=== PATIENT | female | born 1955 | race Caucasian/White ===

== ENCOUNTER 2018-10-19 19:48 | Emergency (ER) | payer BC ==
--- OUTSIDE RECORDS SUMMARY | 2018-10-19 20:04 | XMS REPORT | Clinical Summary ---
:1955 Author Organization [facility] Address [address] [place] [address] Care Team Providers Name Role Phone Darvin Martin MD Primary Care Provider Allergies Active Allergy Reactions Severity Noted Date Comments Penicillins Hives, Swelling High 1956 [place] Swelling High 04/19/2018 Medications Medication Sig Dispensed Refills Start End Date Status Date telmisartan-hydrochl Take 1 tablet 0 Active orothiazid (MICARDIS by mouth HCT) 40-12.5 mg per daily. tablet escitalopram Take 10 mg by 0 Active (LEXAPRO) 10 MG mouth daily. tablet pregabalin (LYRICA) Take 75 mg by 0 Active 75 MG capsule mouth daily. trospium chloride Take 60 mg by 0 Active (TROSPIUM ORAL) mouth daily. OMEPRAZOLE ORAL Take 40 mg by 0 Active mouth daily. cyclobenzaprine Take 1/2 to 1 40 tablet 0 Active (FLEXERIL) 10 mg tab orally 3 9 tablet times daily as needed ibuprofen Take 800 mg by 0 08/02/19 Discontinued (ADVIL,MOTRIN) 800 mouth daily. 19 (Stop Taking at MG tablet Discharge) UNABLE TO FIND Take by mouth 0 05/02/19 Discontinued daily. 19 (Med List Medication for Cleanup) bladder control ( name unknown) acetaminophen-codein Take 1-2 40 tablet 0 08/12/19 e (TYLENOL WITH tablets by 9 19 CODEINE #3) 300-30 mouth 4 (four) mg per tablet times a day as needed for moderate pain for up to 10 days. Active Problems Problem Noted Date Follow-up examination following surgery 09/02/2018 Fixation hardware in spine 09/02/2018 Cervical spondylosis with myelopathy and radiculopathy 07/31/2018 Cervicalgia 05/23/2018 Resolved Problems Problem Noted Date Resolved Date HNP (herniated nucleus pulposus) with myelopathy, cervical 05/23/20182018 Encounters Date Type Specialty Care Team Description 09/02/2018 Office Visit Corey Francois (Primary Dx); MD Kt Follow-up examination following surgery; Fixation hardware in spine 09/02/2018 Hospital Encounter Radiology Corey Draper Cervical vertebral MD Kt fusion 09/02/2018 Orders Only Neurosurgery Corey Draper Cervical MD Kt radiculopathy (Primary Dx) 08/02/2018 Orders Only Neurosurgery Jessenia Cavanaugh, Cervical vertebral STREET ENGINEER fusion (Primary Dx) 07/31/2018 Surgery General Surgery Corey Draper ANTERIOR CERVICAL MD Kt DISCECTOMY WITH FUSION C3-C4 07/31/2018 Anesthesia Event General Surgery Tenzin Wei MD [place], [place], [place] 07/31/2018 - Hospital Encounter Corey Francois Cervical spondylosis 08/01/2018 MD Kt with myelopathy 07/04/2018 Pre-Admit Testing Pre-Admission Corey Draper Preop testing Appointment Testing MD Kt (Primary Dx) 07/04/2018 Office Visit Neurosurgery Corey Draper HNP (herniated nucleus pulposus) with myelopathy, cervical (Primary Dx); MD Kim Meraz 07/04/2018 Hospital Encounter Radiology Corey Draper HNP (herniated nucleus pulposus) with myelopathy, cervical; MD Kim Meraz 06/26/2018 Orders Only Neurosurgery Corey Draper HNP (herniated nucleus pulposus) with myelopathy, cervical (Primary Dx); MD Kim Meraz 06/14/2018 Telephone Neurosurgery Corey Draper MD 05/23/2018 Hospital Encounter Radiology Corey Draper MD 05/23/2018 Office Visit Corey Francois HNP (herniated nucleus pulposus) with myelopathy, cervical (Primary Dx); MD Kt Cervicaloliver 05/23/2018 Hospital Encounter Radiology Corey Draper MD radiculopathy 05/23/2018 Hospital Encounter Radiology Corey Draper Cervical MD Kt radiculopathy 05/23/2018 Orders Only Neurosurgery Corey Draper MD radiculopathy (Primary Dx) 05/22/2018 Abstract Neurosurgery Jessenia Cavanaugh, STREET ENGINEER 05/16/2018 Telephone Radiology Malka Tomas RN 05/13/2018 Hospital Encounter Radiology [place], Breast mass Zach Pearson MD 05/13/2018 Hospital Encounter Radiology [place], Breast mass Zach Pearson MD 05/13/2018 Hospital Encounter Radiology [place], Breast mass Zach Pearson MD 05/13/2018 Hospital Encounter Radiology [place], Breast mass Zach Pearson MD 05/13/2018 Telephone Radiology Malka Tomas RN 05/01/2018 Transcribe Orders Radiology [place], Breast mass (Primary Zach Pearson MD Dx) 05/01/2018 Telephone Radiology Malka Tomas RN 04/19/2018 Hospital Encounter Radiology Zach Smith MD 04/19/2018 Hospital Encounter Radiology Zach Smith MD 04/19/2018 Hospital Encounter Radiology Zach Smith MD 04/19/2018 Hospital Encounter Radiology [place], Breast pain Zach Pearson MD 04/01/2018 Transcribe Orders Access [place], Breast pain (Primary Zach Pearson MD Dx) after 10/18/2017 Social History Tobacco Use Types Packs/Day Years Used Date Never Smoker Smokeless Tobacco: Never Used Alcohol Use Drinks/Week oz/Week Comments No rare Alcohol Habits Answer Date Recorded How often do you have a drink containing alcohol? Never 05/22/2018 How many drinks containing alcohol do you have on a typical Not asked day when you are drinking? How often do you have six or more drinks on one occasion? Not asked Sex Assigned at Date Recorded Not on file Job Start Date Occupation Industry Not on file Not on file Not on file Travel History Travel Start Travel End No recent travel history available. Last Filed Vital Signs Vital Sign Reading Time Taken Comments Blood Pressure 109/59 08/01/2018 8:18 AM CDT Pulse 61 08/01/2018 8:18 AM CDT Temperature 36.6 C (97.9 F) 08/01/2018 8:18 AM CDT Respiratory Rate 16 08/01/2018 8:18 AM CDT Oxygen Saturation 98% 08/01/2018 8:18 AM CDT Inhaled Oxygen Concentration - - Weight 88.4 kg (194 lb 14.4 oz) 07/31/2018 5:36 AM CDT Height 154.9 cm (5' 1") 07/31/2018 5:36 AM CDT Body Mass Index 36.83 07/31/2018 5:36 AM CDT Plan of Treatment Date Type Specialty Care Team Description 11/04/2018 Office Visit Neurosurgery Corey Draper MD [address] [facility] [facility] [address] [place] [address] Health Maintenance Due Date Last Done Comments CERVICAL CANCER SCREENING 1977 COLONOSCOPY SCREENING 2006 SHINGLES VACCINES (#1) 2006 INFLUENZA VACCINE 09/05/2018 BREAST CANCER SCREENING 05/13/2020 05/13/2018 Implants Implanted Type Area Advertising Job Titles Device Shelf Model / Identifier Expiration Serial / Date Lot Justyna Merlos Mastergraft Cer 0.75cc - [id number] Human Tissue N/A: MEDTRONIC 04/04/2022 [id number] / Implanted: Qty: 1 on 07/31/2018 by Corey Draper MD at [facility] Implants N/A SPINAL AND / BIOLOGICS [id number] Stand-Alone Interbody Cage [id number] - [id number] IMPLANT N/A: MEDTRONIC 05/06/2026 [id number] / Implanted: 07/31/2018 at [facility] (Quantity not on file) DEVICES N/A SOFAMOR DANEK / [id number] 3.5x15mm Self-Drill Screw (2 Pack) - [id number] IMPLANT N/A: [employer] 05/22/2026 [id number] / Implanted: 07/31/2018 at [facility] (Quantity not on file) DEVICES N/A SOFAMOR DANEK / [id number] Pin Distrctn Lithia 12mm Strl - [id number] Neurosurgical N/A: AESCULAP SPINE 02/26/2023 [id number] / Implanted: 07/31/2018 at [facility] (Quantity not on file) Implants N/A / [id number] Procedures Procedure Name Priority Date/Time Associated Comments Diagnosis XR CERVICAL SPINE 2 Routine 09/02/2018 8:43 AM Cervical vertebral Results for this OR 3 VW CDT fusion procedure are in the results section. SURGICAL PATHOLOGY Routine 07/31/2018 11:53 AM Results for this REQUEST CDT procedure are in the results section. XR CERVICAL SPINE 1 Routine 07/31/2018 9:30 AM Results for this VW CDT procedure are in the results section. ANESTHESIA Routine 07/31/2018 9:17 AM INTUBATION CDT Procedure Note - Julee Garcia CRNA - 07/31/2018 9:17 AM CDT Airway Date/Time: 07/31/2018 8:12 AM Performed by: Julee Garcia CRNA Authorized by: Tenzin Wei MD Location: OR Resident/JOSE ANTONIO/AA: Julee Garcia CRNA Performed by: resident/FLIGHT SERVICE SPECIALIST/AA Preoxygenated with 100% O2: Yes C-spine Precautions Maintained Throughout: Yes Mask Ventilation: Assisted mask (OPA ) Final Airway Type: Endotracheal airway Final Endotracheal Airway: ETT Cuffed: Yes Technique Used: Video laryngoscopy Insertion Site: Oral Blade type: Allport scope. Laryngoscope Blade/Videolaryngoscope Blade Size: 3 ETT Size (mm): 7.0 Cuff at minimum occlusion pressure: Yes Measured from: Lips ETT to Lips (cm): 22 Placement Verified by: CO2 detection Laryngoscopic view: Grade I - full view of glottis Number of Attempts at Approach: 1 Preoxygenation >3 min Eyes taped at LOC Easy, gentle mask ventilation Easy, atraumatic intubation using Allport scope Dentition unchanged and intact XR CERVICAL SPINE Routine 07/31/2018 9:09 AM Results for this 1 VW CDT procedure are in the results section. XR CERVICAL SPINE Routine 07/31/2018 9:09 AM Results for this 1 VW CDT procedure are in the results section. DISCECTOMY, 07/31/2018 7:58 AM Cervical spondylosis CERVICAL, WITH CDT with myelopathy FUSION, ANTERIOR APPROACH Case Notes SUPINE POSITION, MICROSCOPE, [employer] STAND ALONE CAGE Special Needs SUPINE POSITION, MICROSCOPE, [employer] STAND ALONE CAGE ESTIMATED GFR Routine 07/04/2018 12:12 PM Results for this CDT procedure are in the results section. BASIC METABOLIC Routine 07/04/2018 12:12 PM Preop testing Results for this PANEL CDT procedure are in the results section. HC COMPLETE BLD Routine 07/04/2018 12:12 PM Preop testing Results for this COUNT W/AUTO DIFF CDT procedure are in the results section. MRI CERVICAL SPINE Routine 07/04/2018 9:57 AM HNP (herniated nucleus Results for this WO CONTRAST CDT pulposus) with procedure are in myelopathy, cervical the results Cervicalgia section. XR SPINE SCOLIOSIS Routine 05/23/2018 10:02 AM Cervical radiculopathy Results for this 2-3 VIEWS CDT procedure are in the results section. XR CERVICAL SPINE Routine 05/23/2018 10:00 AM Cervical radiculopathy Results for this COMPLETE W FLEX EXT CDT procedure are in the results section. SURGICAL PATHOLOGY Routine 05/13/2018 1:12 PM Results for this REQUEST CDT procedure are in the results section. SURGICAL PATHOLOGY Routine 05/13/2018 1:12 PM Results for this REQUEST CDT procedure are in the results section. MAMMO DIAGNOSTIC W Routine 05/13/2018 9:48 AM Breast mass Results for this CAD LEFT CDT procedure are in the results section. US BREAST BIOPSY Routine 05/13/2018 9:25 AM Breast mass Results for this EACH ADDITIONAL CDT procedure are in LEFT the results section. US BREAST BIOPSY Routine 05/13/2018 9:25 AM Breast mass Results for this LEFT CDT procedure are in the results section. US BREAST LEFT Routine 05/13/2018 9:23 AM Breast mass Results for this LIMITED CDT procedure are in the results section. MRI BREAST W WO Routine 04/19/2018 2:30 PM Breast pain Results for this CONTRAST BILATERAL CDT procedure are in the results section. POC CREATININE Routine 04/19/2018 1:52 PM Results for this CDT procedure are in the results section. ESTIMATED GFR Routine 04/19/2018 1:52 PM Results for this CDT procedure are in the results section. MRI SPINE EXTERNAL Routine 03/21/2018 12:17 PM Results for this STUDY COMPLIANCE INVESTIGATOR procedure are in the results section. MAMMO EXTERNAL Routine 03/04/2018 1:17 PM Results for this STUDY COMPLIANCE INVESTIGATOR procedure are in the results section. US BREAST EXTERNAL Routine 03/04/2018 1:12 PM Results for this STUDY COMPLIANCE INVESTIGATOR procedure are in the results section. after 10/18/2017 Results XR Cervical Spine 2 Or 3 Vw (09/02/2018 8:43 AM CDT) Specimen Narrative Performed At EXAMINATION: XR CERVICAL SPINE 2 OR 3 VW [facility] CLINICAL HISTORY: M43.22 Fusion of spinecervical region, C-spine fusionfollow up COMPARISON:None IMPRESSION: 3 views of the cervical spine are interpreted. ACDF is noted at C3-4 with endplate screws. No loosening is seen. Moderate disc degenerative changes are noted at C6-7 and to a lesser extent at C4-5 and C5-6. Mild disc degenerative changes are noted at C2-3. Alignment is preserved. [facility]-[id number] Procedure Note Interface, Radiology Results Incoming - 09/02/2018 8:48 AM CDT EXAMINATION: XR CERVICAL SPINE 2 OR 3 VW CLINICAL HISTORY: M43.22 Fusion of spine cervical region, C-spine fusion follow up COMPARISON: None IMPRESSION: 3 views of the cervical spine are interpreted. ACDF is noted at C3-4 with endplate screws. No loosening is seen. Moderate disc degenerative changes are noted at C6-7 and to a lesser extent at C4-5 and C5-6. Mild disc degenerative changes are noted at C2-3. Alignment is preserved. [facility]-[id number] Performing Organization Address City/[facility]/Zipcode Phone Number [facility] [address] [place] [address] Surgical pathology request (07/31/2018 11:53 AM CDT)Only the most recent of3 resultswithin the time period is included. [facility] DEPARTMENT OF PATHOLOGY AND GENOMIC MEDICINE Surgical pathology See link below [facility] DEPARTMENT OF report for PDF Lab PATHOLOGY AND Report GENOMIC MEDICINE Result status This is Final [facility] DEPARTMENT OF Report for PATHOLOGY AND [id number] GENOMIC MEDICINE Specimen Performing Organization Address City/[facility] Phone Number [facility] DEPARTMENT OF PATHOLOGY AND [address] [place] [address] GENOMIC MEDICINE XR Cervical Spine 1 Vw (07/31/2018 9:30 AM CDT)Only the most recent of3 resultswithin the time period is included. Specimen Narrative Performed At EXAMINATION: XR CERVICAL SPINE 1 VW [facility] CLINICAL HISTORY: Cervical region neck pain and radiculopathy COMPARISON:Intraoperative x-ray from earlier today FINDINGS: There is anterior fusion from C3-C4. There is good alignment. There are degenerative changes in the cervical spine. There is a tube within the oropharynx extending downwards. There are multiple radiographic wires and leads. IMPRESSION: Lateral portable crosstable intraoperative radiograph of the cervical spine for localization during cervical spine surgery. [facility]-[id number] Procedure Note Interface, Radiology Results Incoming - 07/31/2018 10:44 AM CDT EXAMINATION: XR CERVICAL SPINE 1 VW CLINICAL HISTORY: Cervical region neck pain and radiculopathy COMPARISON: Intraoperative x-ray from earlier today FINDINGS: There is anterior fusion from C3-C4. There is good alignment. There are degenerative changes in the cervical spine. There is a tube within the oropharynx extending downwards. There are multiple radiographic wires and leads. IMPRESSION: Lateral portable crosstable intraoperative radiograph of the cervical spine for localization during cervical spine surgery. [facility]-[id number] Performing Organization Address City/[facility] Cent[facility]ode Phone Number [facility] [address] [place] [address] Estimated GFR (07/04/2018 12:12 PM CDT)Only the most recent of2 resultswithin the time period is included. Estimated GFR 60 mL/min/1.73 [facility] Comment: [address] CatergoryUnitsInterpretation G1 >=90 Normal or high G2 60-89Mildly decreased [id number] to moderately decreased H3i90-91Uietwkcmtg to severely decreased G4 15-29Severely decreased G5 <15Kidney failure The eGFR was calculated using the Chronic Kidney Disease Epidemiology Collaboration (CKD-EPI) equation. Interpretation is based on recommendations of the National Kidney Foundation-Kidney Disease Outcomes Quality Initiative (NKF-KDOQI) published in 2014. Specimen Plasma specimen Performing Organization Address [facility] Centercode Phone Number [facility] DEPARTMENT OF PATHOLOGY AND [address] [place] [address] GENOMIC MEDICINE [address] [address] CBC with platelet and differential (07/04/2018 12:12 PM CDT) WBC 6.74 4.50 - 11.00 [facility] RBC 4.56 4.20 - 5.50 [facility] HGB 14.4 12.0 - 16.0 [facility] g/dL [facility] HCT 43.3 37.0 - 47.0 % [facility] MCV 95.0 82.0 - 100.0 [facility] MCH 31.6 27.0 - 34.0 pg [facility] MCHC 33.3 31.0 - 37.0 [facility] g/dL [facility] RDW - SD 44.9 37.0 - 55.0 fL [facility] MPV 11.0 8.8 - 13.2 fL [facility] Platelet count 244 150 - 400 k/uL [facility] Nucleated RBC 0.00 /100 WBC [facility] Neutrophils 60.5 39.0 - 69.0 % [facility] Lymphocytes 27.4 25.0 - 45.0 % [facility] Monocytes 8.8 0.0 - 10.0 % [facility] Eosinophils 2.2 0.0 - 5.0 % [facility] Basophils 0.7 0.0 - 1.0 % [facility] Immature granulocytes 0.4Comment: 0.0 - 1.0 % [facility] granulocytes" (promyelocytes , myelocytes, metamyelocytes ) Specimen Blood Performing Organization Address City/[facility]ode Phone Number [facility] DEPARTMENT OF PATHOLOGY AND [address] [place] [phone] Basic metabolic panel (07/04/2018 12:12 PM CDT) Sodium 143 135 - 148 mEq/L [facility] Potassium 3.8 3.5 - 5.0 mEq/L [facility] Chloride 100 98 - 112 mEq/L [facility] CO2 28 24 - 31 mEq/L [facility] Anion gap 15@ANIO 7 - 15 mEq/L [facility] BUN 13 8 - 23 mg/dL [facility] Creatinine 1.01 (H) 0.50 - 0.90 mg/dL [facility] Glucose 112 (H) 65 - 99 mg/dL [facility] Calcium 9.5 8.8 - 10.2 mg/dL [facility] Specimen Plasma specimen Performing Organization Address City/[facility]ercode Phone Number [facility] DEPARTMENT OF PATHOLOGY AND [address] [place] [address] MRI Cervical Spine Wo Contrast (07/04/2018 9:57 AM CDT) Specimen Narrative Performed At EXAMINATION: MRI CERVICAL SPINE WO CONTRAST [facility] CLINICAL HISTORY: M50.00 Cervical disc disorder with myelopathyunspecified cervical region, M54.2 Cervicalgia, HNP (herniated nucleus pulposus) with myelopathycervical COMPARISON:MRI C-spine 03/21/2018. TECHNIQUE: Multiplanar multisequence noncontrast enhanced examination was performed of the cervical spine. FINDINGS: No significant interval change appearing since the prior MRI from 2018.The alignment of cervical spine is within normal limits.No subluxation. STIR hyperintense vertebral hemangiomas are noted with in the T1 and T2 vertebral bodies. No suspicious osseous lesion. Vertebral body heights are preserved. The cervicomedullary junction is normal in appearance. No spinal cord signal abnormality. No prevertebral edema identified. Right thyroid nodule measuring up to 1.9 x 1.4 cm noted within the right tracheoesophageal groove, image 28 of series 6. No cervical lymphadenopathy identified. Axial images through the disc spaces demonstrate the following: C1-C2: No significant spinal canal stenosis. C2-C3: No significant posterior disc disease, spinal canal, subarticular zone, or neural foraminal stenosis. C3-C4: Disc desiccation with mild broad-based disc protrusion which indents the ventral thecal sac and results in mild to moderate central canal stenosis, including contact of the ventral spinal cord, image 14 of series 5. Neural foramina are patent bilaterally. C4-C5: Mild to moderate left neural foraminal stenosis secondary to degenerative uncovertebral hypertrophy, image 17 of series 5. No significant posterior disc disease, spinal canal, subarticular zone, or right neural foraminal stenosis. C5-C6: Disc desiccation with moderate intervertebral disc height loss and circumferential disc bulge which indents the ventral thecal sac and results in moderate bilateral neural frontal stenosis when combined with facet arthrosis. Central canal is mildly narrowed. C6-C7: Moderate to marked left neural foraminal stenosis secondary to degenerative uncovertebral and facet arthrosis. No significant posterior disc disease, spinal canal, subarticular zone, or right neural foraminal stenosis. C7-T1: No significant posterior disc disease, spinal canal, subarticular zone, or neural foraminal stenosis. IMPRESSION: 1.Mild to moderate central canal stenosis at C3-C4 secondary to broad- based disc protrusion, including contact of the ventral spinal cord. No abnormal cord signal. 2.Right tracheal esophageal groove thyroid nodule measuring up to 1.9 cm, which merits dedicated thyroid ultrasound and FNA/biopsy based on size criteria. [facility]-[id number] Procedure Note Hm Interface, Radiology Results Incoming - 07/04/2018 10:27 AM CDT EXAMINATION: MRI CERVICAL SPINE WO CONTRAST CLINICAL HISTORY: M50.00 Cervical disc disorder with myelopathy unspecified cervical region, M54.2 Cervicalgia, HNP (herniated nucleus pulposus) with myelopathy cervical COMPARISON: MRI C-spine 03/21/2018. TECHNIQUE: Multiplanar multisequence noncontrast enhanced examination was performed of the cervical spine. FINDINGS: No significant interval change appearing since the prior MRI from 2018.The alignment of cervical spine is within normal limits.No subluxation. STIR hyperintense vertebral hemangiomas are noted within the T1 and T2 vertebral bodies. No suspicious osseous lesion. Vertebral body heights are preserved. The cervicomedullary junction is normal in appearance. No spinal cord signal abnormality. No prevertebral edema identified. Right thyroid nodule measuring up to 1.9 x 1.4 cm noted within the right tracheoesophageal groove, image 28 of series 6. No cervical lymphadenopathy identified. Axial images through the disc spaces demonstrate the following: C1-C2: No significant spinal canal stenosis. C2-C3: No significant posterior disc disease, spinal canal, subarticular zone, or neural foraminal stenosis. C3-C4: Disc desiccation with mild broad-based disc protrusion which indents the ventral thecal sac and results in mild to moderate central canal stenosis, including contact of the ventral spinal cord, image 14 of series 5. Neural foramina are patent bilaterally. C4-C5: Mild to moderate left neural foraminal stenosis secondary to degenerative uncovertebral hypertrophy, image 17 of series 5. No significant posterior disc disease, spinal canal, subarticular zone, or right neural foraminal stenosis. C5-C6: Disc desiccation with moderate intervertebral disc height loss and circumferential disc bulge which indents the ventral thecal sac and results in moderate bilateral neural frontal stenosis when combined with facet arthrosis. Central canal is mildly narrowed. C6-C7: Moderate to marked left neural foraminal stenosis secondary to degenerative uncovertebral and facet arthrosis. No significant posterior disc disease, spinal canal, subarticular zone, or right neural foraminal stenosis. C7-T1: No significant posterior disc disease, spinal canal, subarticular zone, or neural foraminal stenosis. IMPRESSION: 1. Mild to moderate central canal stenosis at C3-C4 secondary to broad-based disc protrusion, including contact of the ventral spinal cord. No abnormal cord signal. 2. Right tracheal esophageal groove thyroid nodule measuring up to 1.9 cm, which merits dedicated thyroid ultrasound and FNA/biopsy based on size criteria. [facility]-[id number] Performing Organization Address City/State/Zipcode Phone Number [facility] [address] [place] [address] XR Spine Scoliosos 2-3 Views (05/23/2018 10:02 AM CDT) Specimen Narrative Performed At EXAMINATION: XR SPINE SCOLIOSIS 2-3 VIEWS [facility] CLINICAL HISTORY: M54.12 Radiculopathycervical region, radiculopathy COMPARISON:None IMPRESSION: 12 rib-bearing thoracic vertebrae and 5 lumbar type vertebrae. Mild right convex scoliosis with Vazquez angle measuring 14 degrees from the superior endplate of T6 to the inferior endplate of T12. Mild left convex lumbar scoliosis with Vazquez angle measuring 17 degrees from the spine but of T12 to the inferior endplate of L3. Mild left lateral subluxation of L3 on L4. A coronal reji line drawn inferiorly from the mid C7 vertebral body terminates approximately 2.3 cm to the left of the mid S1 level. A sagittal reji line drawn inferiorly from the mid C7 vertebral body terminates approximately 1.5 cm anterior to the posterior aspect of the superior endplate of S1. [id number] Procedure Note Interface, Radiology Results Incoming - 05/23/2018 1:28 PM CDT EXAMINATION: XR SPINE SCOLIOSIS 2-3 VIEWS CLINICAL HISTORY: M54.12 Radiculopathy cervical region, radiculopathy COMPARISON: None IMPRESSION: 12 rib-bearing thoracic vertebrae and 5 lumbar type vertebrae. Mild right convex scoliosis with Vazquez angle measuring 14 degrees from the superior endplate of T6 to the inferior endplate of T12. Mild left convex lumbar scoliosis with Vazquez angle measuring 17 degrees from the spine but of T12 to the inferior endplate of L3. Mild left lateral subluxation of L3 on L4. A coronal reji line drawn inferiorly from the mid C7 vertebral body terminates approximately 2.3 cm to the left of the mid S1 level. A sagittal reji line drawn inferiorly from the mid C7 vertebral body terminates approximately 1.5 cm anterior to the posterior aspect of the superior endplate of S1. [id number] Performing Organization Address City/[facility] Phone Number [facility] [address] [place] [address] XR Cervical Spine Complete w flex/ext (05/23/2018 10:00 AM CDT) Specimen Narrative Performed At EXAMINATION:XR CERVICAL SPINE COMPLETE W FLEX EXT [facility] COMPARISON:None CLINICAL HISTORY:M54.12 Radiculopathycervical region, radiculopathy COMMENTS:Frontal and lateral and 2 oblique views and flexion-extension views of the cervical spine are provided. FINDINGS:There is mild spondylosis including posteriorly in the mid and lower cervical spine. There is mild disc height narrowing and endplate sclerosis at C6-7 and to a lesser degree at the adjacent levels. Between flexion and extension there is no significant abnormal motion. The oblique views show encroachment upon the C6-7 foramen bilaterally. IMPRESSION:Degenerative change in the cervical spine. [id number] Procedure Note Hm Interface, Radiology Results Incoming - 05/23/2018 10:33 AM CDT EXAMINATION: XR CERVICAL SPINE COMPLETE W FLEX EXT COMPARISON: None CLINICAL HISTORY: M54.12 Radiculopathy cervical region, radiculopathy COMMENTS: Frontal and lateral and 2 oblique views and flexion-extension views of the cervical spine are provided. FINDINGS: There is mild spondylosis including posteriorly in the mid and lower cervical spine. There is mild disc height narrowing and endplate sclerosis at C6-7 and to a lesser degree at the adjacent levels. Between flexion and extension there is no significant abnormal motion. The oblique views show encroachment upon the C6-7 foramen bilaterally. IMPRESSION: Degenerative change in the cervical spine. [id number] Performing Organization Address [facility] Phone Number [facility] [address] [place] [address] Mammo Diagnostic w Cad Left (05/13/2018 9:48 AM CDT) Specimen Addenda Addendum by Sofia Medina MD on 05/15/2018 8:40 AM ADDENDUM #1 The specimen from the left breast ultrasound guided biopsy of mass 1 yielded dilated ducts lined by foamy histiocytes and filled with granular material and stromal fibrosis. Site 2 yielded mildly dilated duct with columnar cell change and stromal fibrosis. Imaging and benign pathology are concordant. IMPRESSION: Recommend 6 month interval follow-up left breast mammography and ultrasound reestablish a baseline appearance status post biopsy Narrative Performed At PROCEDURE: [facility] US BREAST BIOPSY EACH ADDITIONAL LEFT, MAMMO DIAGNOSTIC W CAD LEFT, US BREAST BIOPSY LEFT, US BREAST LEFT LIMITED CLINICAL HISTORY: The patient came in for ultrasound-guided core biopsies of the left breast CONSENT: Informed consent for ultrasound guided core needle biopsies of the left breast was obtained following a detailed discussion of the procedure, alternatives, risks, and complications including hemorrhage, infection, and clip migration. PROCEDURE: Targeted preprocedural ultrasound demonstrated the lesions of interest in the lateral left breast and ultrasound-guided biopsies were pursued. Attention was first turned to the area of acoustic shadowing at the 3 o'clock position. The patient was prepped and draped in the usual sterile fashion and 1% lidocaine with and without epinephrine was used to anesthetize the soft tissues. Under ultrasound guidance, a 12-gauge vacuum-assisted Celero biopsy device was used to obtain 3 core samples. Under ultrasound guidance, a single ribbon clip was deployed. Attention was then turned to the slightly more medial subcentimeter largely anechoic mass and ultrasound-guided biopsy was pursued. The patient was prepped and draped in the usual sterile fashion and 1% lidocaine with and without epinephrine was used to anesthetize the soft tissues. Under ultrasound guidance, 12-gauge vacuum assisted Eva biopsy device was used to obtain 2 core samples. The lesion collapsed with the first sample. Under ultrasound guidance, a single wing clip was deployed. Postprocedural mammography was performed with minimal compression. This was not for diagnostic purposes but instead for clip identification. This demonstrated successful deployment of the clips in the expected location. The patient tolerated the procedure and left the department in stable condition. Histology is pending. IMPRESSION: Ultrasound guided core needle biopsies of the left breast are complete.Final pathology report is pending. Addendum will follow. Performing Organization Address City/State/Zipcode Phone Number [facility] [address] [place] [address] US Breast Biopsy Each Additional Left (05/13/2018 9:25 AM CDT) Specimen Addenda Addendum by Sofia Medina MD on 05/15/2018 8:40 AM ADDENDUM #1 The specimen from the left breast ultrasound guided biopsy of mass 1 yielded dilated ducts lined by foamy histiocytes and filled with granular material and stromal fibrosis. Site 2 yielded mildly dilated duct with columnar cell change and stromal fibrosis. Imaging and benign pathology are concordant. IMPRESSION: Recommend 6 month interval follow-up left breast mammography and ultrasound reestablish a baseline appearance status post biopsy Narrative Performed At PROCEDURE: [facility] US BREAST BIOPSY EACH ADDITIONAL LEFT, MAMMO DIAGNOSTIC W CAD LEFT, US BREAST BIOPSY LEFT, US BREAST LEFT LIMITED CLINICAL HISTORY: The patient came in for ultrasound-guided core biopsies of the left breast CONSENT: Informed consent for ultrasound guided core needle biopsies of the left breast was obtained following a detailed discussion of the procedure, alternatives, risks, and complications including hemorrhage, infection, and clip migration. PROCEDURE: Targeted preprocedural ultrasound demonstrated the lesions of interest in the lateral left breast and ultrasound-guided biopsies were pursued. Attention was first turned to the area of acoustic shadowing at the 3 o'clock position. The patient was prepped and draped in the usual sterile fashion and 1% lidocaine with and without epinephrine was used to anesthetize the soft tissues. Under ultrasound guidance, a 12-gauge vacuum-assisted Celero biopsy device was used to obtain 3 core samples. Under ultrasound guidance, a single ribbon clip was deployed. Attention was then turned to the slightly more medial subcentimeter largely anechoic mass and ultrasound-guided biopsy was pursued. The patient was prepped and draped in the usual sterile fashion and 1% lidocaine with and without epinephrine was used to anesthetize the soft tissues. Under ultrasound guidance, 12-gauge vacuum assisted Eva biopsy device was used to obtain 2 core samples. The lesion collapsed with the first sample. Under ultrasound guidance, a single wing clip was deployed. Postprocedural mammography was performed with minimal compression. This was not for diagnostic purposes but instead for clip identification. This demonstrated successful deployment of the clips in the expected location. The patient tolerated the procedure and left the department in stable condition. Histology is pending. IMPRESSION: Ultrasound guided core needle biopsies of the left breast are complete.Final pathology report is pending. Addendum will follow. Performing Organization Address City/State/Zipcode Phone Number [facility] [address] [place] [address] US Breast Biopsy Left (05/13/2018 9:25 AM CDT) Specimen Addenda Addendum by Sofia Medina MD on 05/15/2018 8:40 AM ADDENDUM #1 The specimen from the left breast ultrasound guided biopsy of mass 1 yielded dilated ducts lined by foamy histiocytes and filled with granular material and stromal fibrosis. Site 2 yielded mildly dilated duct with columnar cell change and stromal fibrosis. Imaging and benign pathology are concordant. IMPRESSION: Recommend 6 month interval follow-up left breast mammography and ultrasound reestablish a baseline appearance status post biopsy Narrative Performed At PROCEDURE: [facility] US BREAST BIOPSY EACH ADDITIONAL LEFT, MAMMO DIAGNOSTIC W CAD LEFT, US BREAST BIOPSY LEFT, US BREAST LEFT LIMITED CLINICAL HISTORY: The patient came in for ultrasound-guided core biopsies of the left breast CONSENT: Informed consent for ultrasound guided core needle biopsies of the left breast was obtained following a detailed discussion of the procedure, alternatives, risks, and complications including hemorrhage, infection, and clip migration. PROCEDURE: Targeted preprocedural ultrasound demonstrated the lesions of interest in the lateral left breast and ultrasound-guided biopsies were pursued. Attention was first turned to the area of acoustic shadowing at the 3 o'clock position. The patient was prepped and draped in the usual sterile fashion and 1% lidocaine with and without epinephrine was used to anesthetize the soft tissues. Under ultrasound guidance, a 12-gauge vacuum-assisted Celero biopsy device was used to obtain 3 core samples. Under ultrasound guidance, a single ribbon clip was deployed. Attention was then turned to the slightly more medial subcentimeter largely anechoic mass and ultrasound-guided biopsy was pursued. The patient was prepped and draped in the usual sterile fashion and 1% lidocaine with and without epinephrine was used to anesthetize the soft tissues. Under ultrasound guidance, 12-gauge vacuum assisted Eva biopsy device was used to obtain 2 core samples. The lesion collapsed with the first sample. Under ultrasound guidance, a single wing clip was deployed. Postprocedural mammography was performed with minimal compression. This was not for diagnostic purposes but instead for clip identification. This demonstrated successful deployment of the clips in the expected location. The patient tolerated the procedure and left the department in stable condition. Histology is pending. IMPRESSION: Ultrasound guided core needle biopsies of the left breast are complete.Final pathology report is pending. Addendum will follow. Performing Organization Address City/State/Zipcode Phone Number [facility] [address] [place] [address] US Breast Left Limited (05/13/2018 9:23 AM CDT) Specimen Addenda Addendum by Sofia Medina MD on 05/15/2018 8:40 AM ADDENDUM #1 The specimen from the left breast ultrasound guided biopsy of mass 1 yielded dilated ducts lined by foamy histiocytes and filled with granular material and stromal fibrosis. Site 2 yielded mildly dilated duct with columnar cell change and stromal fibrosis. Imaging and benign pathology are concordant. IMPRESSION: Recommend 6 month interval follow-up left breast mammography and ultrasound reestablish a baseline appearance status post biopsy Narrative Performed At PROCEDURE: [facility] US BREAST BIOPSY EACH ADDITIONAL LEFT, MAMMO DIAGNOSTIC W CAD LEFT, US BREAST BIOPSY LEFT, US BREAST LEFT LIMITED CLINICAL HISTORY: The patient came in for ultrasound-guided core biopsies of the left breast CONSENT: Informed consent for ultrasound guided core needle biopsies of the left breast was obtained following a detailed discussion of the procedure, alternatives, risks, and complications including hemorrhage, infection, and clip migration. PROCEDURE: Targeted preprocedural ultrasound demonstrated the lesions of interest in the lateral left breast and ultrasound-guided biopsies were pursued. Attention was first turned to the area of acoustic shadowing at the 3 o'clock position. The patient was prepped and draped in the usual sterile fashion and 1% lidocaine with and without epinephrine was used to anesthetize the soft tissues. Under ultrasound guidance, a 12-gauge vacuum-assisted Celero biopsy device was used to obtain 3 core samples. Under ultrasound guidance, a single ribbon clip was deployed. Attention was then turned to the slightly more medial subcentimeter largely anechoic mass and ultrasound-guided biopsy was pursued. The patient was prepped and draped in the usual sterile fashion and 1% lidocaine with and without epinephrine was used to anesthetize the soft tissues. Under ultrasound guidance, 12-gauge vacuum assisted Vea biopsy device was used to obtain 2 core samples. The lesion collapsed with the first sample. Under ultrasound guidance, a single wing clip was deployed. Postprocedural mammography was performed with minimal compression. This was not for diagnostic purposes but instead for clip identification. This demonstrated successful deployment of the clips in the expected location. The patient tolerated the procedure and left the department in stable condition. Histology is pending. IMPRESSION: Ultrasound guided core needle biopsies of the left breast are complete.Final pathology report is pending. Addendum will follow. Performing Organization Address [facility]/Zipcode Phone Number [facility] [address] [place] [address] MRI Breast W Wo Contrast Bilateral (04/19/2018 2:30 PM CDT) Specimen Narrative Performed At EXAMINATION:MRI BREAST W WO CONTRAST BILATERAL04/19/2018 [facility] COMPARISONS:Outside institution mammograms dated March 04, 2018 and November 02, 2016 INDICATION:Pain in the lateral aspect of the left breast and intermittent left nipple discharge. TECHNIQUE: Routine multiplanar MR images of the breasts were obtained before and after the uneventful administration of 17.4 mL of Magnevist intravenous contrast. Images were sent to a separate workstation for 3D reformat and DynaCAD dynamic perfusion analysis. LMP: Postmenopausal FINDINGS: There are no precontrast signal abnormalities in either breast. Postcontrast administration there is mild bilateral background enhancement. There are no suspicious masses or enhancing foci in either breast. Specifically , no MRI abnormality to indicate etiology of patient's left breast pain or nipple discharge. No evidence of axillary or internal mammary chain adenopathy. IMPRESSION: No MRI evidence of malignancy. Clinical follow-up regarding left breast pain and nipple discharge is recommended. Routine annual mammographic imaging due in February 2019. BI-RADS Category 2: BENIGN. [id number] Performing Organization Address [facility] Phone Number [facility] [address] [place] [address] POC creatinine (04/19/2018 1:52 PM CDT) POC creatinine 1.0 (H) 0.5 - 0.9 [facility] Comment: mg/dl HOSPITAL Meter ID: [id number] Back Office Medical Assistant: Mary Suh Specimen Blood Performing Organization Address City/[facility]/Zipcode Phone Number [facility] DEPARTMENT OF PATHOLOGY AND [address] [place] [address] GENOMIC MEDICINE [address] [address] MRI Spine External Study (03/21/2018 12:17 PM COMPLIANCE INVESTIGATOR) Specimen Narrative Performed At This exam was not acquired at a [facility] facility and has not been [facility] interpreted by a [facility] Provider.The exam was imported into our imaging system for comparisons purposes. Performing Organization Address City/State/Zipcode Phone Number [facility] [address] [place] [address] Mammo External Study (03/04/2018 1:17 PM COMPLIANCE INVESTIGATOR) Specimen Narrative Performed At This exam was not acquired at a [facility] facility and has not been [facility] interpreted by a [facility] Provider.The exam was imported into our imaging system for comparisons purposes. Performing Organization Address City/State/Zipcode Phone Number [facility] [address] [place] [address] US Breast External Study (03/04/2018 1:12 PM COMPLIANCE INVESTIGATOR) Specimen Narrative Performed At This exam was not acquired at a [facility] facility and has not been [facility] interpreted by a [facility] Provider.The exam was imported into our imaging system for comparisons purposes. 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
--- OUTSIDE RECORDS SUMMARY | 2018-10-19 20:05 | XMS REPORT ---
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
[2018-10-19] MEDS ORDERED: MEPERIDINE HCL 25 MG/0.5 ML ONE (20:45)
[2018-10-19] MEDS ORDERED: NA CHLORIDE 0.9% 1,000 ML ONE (20:45)
[2018-10-19] MEDS ORDERED: METOCLOPRAMIDE 10 MG/2mL INJ ONE (20:45)
[2018-10-19] MEDS ORDERED: Nicardipine/NS 25 MG/250 ML KIT IV ONE (21:44)
[2018-10-19 21:53] LABS: Absolute Lymphocytes (CBC) 1.2 K/uL (0.7-4.9); Basophils % 0.5 % (0-1.3); Hematocrit 42.5 % (36.0-45.0); Lymphocytes % 8.1 % (15.3-44.8); MPV 8.5 fL (7.6-11.3); RBC Red Blood Cell Count 4.59 M/uL (3.86-4.86)
[2018-10-19 22:02] LABS: Potassium 3.6 mmol/L (3.5-5.1)
[2018-10-19 22:04] LABS: Protime INR 1.22
--- NOTE | 2018-10-19 22:18 | EDPHYS ---
Physician Documentation [facility] Name: Manju Novak Age: 63 yrs Sex: Female : 1955 Arrival Date: 10/19/2018 Time: 19:51 Bed 14 Private MD: ED Physician Mike Sandoval HPI: 10/19 20:38 This 63 yrs old Female presents to ER via Ambulatory with complaints of rn Headache, Vomiting. 20:38 The patient complains of pain to the top of head and forehead. The patient describes rn the headache as aching. 20:38 Onset: The symptoms/episode began/occurred 5 day(s) ago. Severity of symptoms: At its rn worst the pain was moderate, in the emergency department the pain is unchanged. The symptoms are alleviated by nothing. the symptoms are aggravated by nothing. The patient has experienced similar episodes in the past. The patient has not recently seen a physician. Reports headache, vomiting, light sensitivity, began 5 days ago, no trauma. + hx of headaches, but never lasted this long, is similar to previous headaches. NO fever/chills/muscle aches. No trauma. Reports neck surgery in July and has been wearing neck brace, thinks may have something to do with this headache. No vision changes or focal neuro complaints. . Historical: - Allergies: 22:27 No Known Allergies; ea - Home Meds: 20:25 telmisartan-hydrochlorothiazid 40-12.5 mg oral tab [Active]; Lexapro Oral [Active]; ea - PMHx: 20:25 Hypertension; ea - PSHx: 20:25 Hysterectomy; blood clot removed from neck; Herniated disk repair in Sep 2018; ea - Immunization history:: Adult Immunizations up to date. - Social history:: Smoking status: Patient/guardian denies using tobacco. - Ebola Screening: : No symptoms or risks identified at this time. - Family history:: not pertinent. - Hospitalizations: : No recent hospitalization is reported. ROS: 20:38 Constitutional: Negative for fever, chills, and weight loss, Eyes: Negative for injury, rn pain, redness, and discharge, Neck: Negative for injury or swelling Cardiovascular: Negative for chest pain, palpitations, and edema, Respiratory: Negative for shortness of breath, cough, wheezing, and pleuritic chest pain, Abdomen/GI: Negative for abdominal pain, diarrhea, and constipation, MS/Extremity: Negative for injury and deformity, Neuro: Negative for numbness, tingling, and seizure. Exam: 20:38 Constitutional: This is a well developed, well nourished patient who is awake, alert, rn and in no acute distress. Head/Face: Normocephalic, atraumatic. Eyes: Pupils equal round and reactive to light, extra-ocular motions intact. Lids and lashes normal. Conjunctiva and sclera are non-icteric and not injected. Cornea within normal limits. Periorbital areas with no swelling, redness, or edema. ENT: dry MM Neck: Trachea midline, no thyromegaly or masses palpated, and no cervical lymphadenopathy. Supple, full range of motion without nuchal rigidity, or vertebral point tenderness. No Meningismus. Skin: Warm, dry MS/ Extremity: Pulses equal, no cyanosis. Neurovascular intact. Full, normal range of motion. Equal circumference. Neuro: Awake and alert, GCS 15, oriented to person, place, time, and situation. Cranial nerves II-XII grossly intact. Motor strength 5/5 in all extremities. Sensory grossly intact. Cerebellar exam normal. Vital Signs: 20:21 BP 132 / 75; Pulse 84; Resp 18; Temp 97.9; Pulse Ox 95% on R/A; Weight 81.19 kg; Height ea 5 ft. 1 in. (154.94 cm); Pain 8/10; 21:39 BP 137 / 76; Pulse 69; Resp 15; Pulse Ox 96% on R/A; rv 21:45 BP 125 / 80; Pulse 67; Resp 14; Pulse Ox 96% on R/A; rv 22:30 BP 128 / 70; Pulse 78; Resp 18; Pulse Ox 98% ; ea 23:55 BP 130 / 72; Pulse 76; Resp 18; Temp 98; Pulse Ox 99% ; ea 20:21 Body Mass Index 33.82 (81.19 kg, 154.94 cm) ea Minesh Coma Score: 22:15 Eye Response: spontaneous(4). Verbal Response: oriented(5). Motor Response: obeys rn commands(6). Total: 15. MDM: 20:26 Patient medically screened. rn 22:06 ED course: Just got report of intracranial hemorrhage, 2.2cm, involving putamen with furniture duster extension.. 22:14 ED course: Organizing transfer to [facility] for neurological care. On cardene drip. BP rn 125/80. Improved pain.. 22:15 Differential diagnosis: intracerebral hemorrhage. Data reviewed: vital signs, nurses rn notes, lab test result(s), radiologic studies, CT scan, and as a result, I will admit patient. Counseling: I had a detailed discussion with the patient and/or guardian regarding: the historical points, exam findings, and any diagnostic results supporting the discharge/admit diagnosis, lab results, radiology results, the need to transfer to another facility, for higher level of care, [facility] does not immediately have the required specialist. Response to treatment: the patient's symptoms have mildly improved after treatment, and as a result, I will admit patient. 10/19 21:26 Order name: CBC with Diff rn 10/19 21:26 Order name: Basic Metabolic Panel rn 10/19 21:26 Order name: Protime (+inr) rn 10/19 21:26 Order name: Ptt, Activated rn 10/19 22:04 Order name: Basic Metabolic Panel; Complete Time: 22:17 EDMS 10/19 22:26 Order name: CBC with Automated Diff EDMS 10/19 20:38 Order name: CT Head Brain wo Cont rn 10/19 20:38 Order name: IV Start; Complete Time: 20:50 rn 10/19 22:28 Order name: Protime (+INR) EDMS 10/19 22:28 Order name: PTT, Activated Partial Thromb EDMS Administered Medications: 20:51 Drug: NS 0.9% 1000 ml Route: IV; Rate: 1000 ml; Site: right antecubital; rv 21:51 Follow up: IV Status: Completed infusion; IV Intake: 1000ml rv 20:52 Drug: Reglan 10 mg Route: IVP; Site: right antecubital; rv 21:51 Follow up: Response: No adverse reaction rv 20:52 Drug: Demerol 25 mg {Note: rass 0.} Route: IVP; Site: right antecubital; rv 21:51 Follow up: Response: No adverse reaction; Pain is decreased; RASS: Alert and Calm (0) rv 21:51 Drug: niCARdipine (25mg/250ml) 5 mg/hr Route: IV; Rate: calculated rate; Site: right rv antecubital; Disposition: 10/19/18 22:17 Transfer ordered to [facility]. Diagnosis are Intracerebral hemorrhage, non-traumatic, Headache. - Reason for transfer: Higher level of care. - Accepting physician is . - Condition is Stable. - Problem is new. - Symptoms have improved. Signatures: Dispatcher [employer] EDMike Mckee MD MD rn Antunez, Elena, RN RN ea Vicente, Ronaldo, RN RN rv Corrections: (The following items were deleted from the chart) 10/20 00:01 10/19 22:17 10/19/2018 22:17 Transfer ordered to [facility]. ea Diagnosis is Intracerebral hemorrhage, non-traumatic; Headache. Reason for transfer: Higher level of care. Accepting physician is . Condition is Stable. Problem is new. Symptoms have improved. rn
--- NOTE | 2018-10-19 22:18 | ER ---
Nurse's Notes [facility] Name: Manju Novak Age: 63 yrs Sex: Female : 1955 Arrival Date: 10/19/2018 Time: 19:51 Bed 14 Private MD: Diagnosis: Intracerebral hemorrhage, non-traumatic;Headache Presentation: 10/19 20:18 Presenting complaint: Patient states: Reports vomiting, headache and weakness since ea Sunday. Pt reports she has been taking Motrin 800 mg for headache without relief. Transition of care: patient was not received from another setting of care. Onset of symptoms was October 19, 2018. Risk Assessment: Do you want to hurt yourself or someone else? Patient reports no desire to harm self or others. Initial Sepsis Screen: Does the patient meet any 2 criteria? No. Patient's initial sepsis screen is negative. Does the patient have a suspected source of infection? No. Patient's initial sepsis screen is negative. Care prior to arrival: Medication(s) given: Motrin, 800 mg. 20:18 Method Of Arrival: Ambulatory ea 20:18 Acuity: PHILIP 3 ea Triage Assessment: 20:26 Headache History: The patient has had previous headaches and this one is different than ea previous episodes. General: Appears uncomfortable, Behavior is calm, cooperative, appropriate for age. Pain:. Neuro: Level of Consciousness is awake, alert, obeys commands, Oriented to person, place, time, situation, Moves all extremities. Gait is steady, Speech is normal, Facial symmetry appears normal. 20:53 Pain: Pain began suddenly. rv 21:54 Pain: Pain currently is 10 out of 10 on a pain scale. Also complains of photophobia. rv Historical: - Allergies: 22:27 No Known Allergies; ea - Home Meds: 20:25 telmisartan-hydrochlorothiazid 40-12.5 mg oral tab [Active]; Lexapro Oral [Active]; ea - PMHx: 20:25 Hypertension; ea - PSHx: 20:25 Hysterectomy; blood clot removed from neck; Herniated disk repair in Sep 2018; ea - Immunization history:: Adult Immunizations up to date. - Social history:: Smoking status: Patient/guardian denies using tobacco. - Ebola Screening: : No symptoms or risks identified at this time. - Family history:: not pertinent. - Hospitalizations: : No recent hospitalization is reported. Screenin:22 Abuse screen: Denies threats or abuse. Nutritional screening: No deficits noted. ea Tuberculosis screening: No symptoms or risk factors identified. Fall Risk None identified. Assessment: 21:00 General: Appears in no apparent distress. uncomfortable, Behavior is calm, cooperative. rv 21:00 Pain: Complains of pain in head. Neuro: Level of Consciousness is awake, alert, obeys rv commands, Oriented to person, place, time, situation, Reports headache frontal area, since 10/14/18, Sunday night. Cardiovascular: Patient's skin is warm and dry. Respiratory: Airway is patent. GI: No signs and/or symptoms were reported involving the gastrointestinal system. : No signs and/or symptoms were reported regarding the genitourinary system. EENT: No signs and/or symptoms were reported regarding the EENT system. Derm: Skin is intact. Musculoskeletal: No signs and/or symptoms reported regarding the musculoskeletal system. 21:54 Reassessment: Patient appears in no apparent distress at this time. No changes from rv previously documented assessment. Patient and/or family updated on plan of care and expected duration. Pain level reassessed. Patient is alert, oriented x 3, equal unlabored respirations, skin warm/dry/pink. CT scan revealed brain bleed. Dr Sandoval talked to pt and family at bedside. blood works done. started with Nicardipine at 5mg/hr. 22:55 Reassessment: Patient and/or family updated on plan of care and expected duration. Pain ea level reassessed. Patient is alert, oriented x 3, equal unlabored respirations, skin warm/dry/pink. [facility] at facility for transfer. Pt left ED via stretcher, pt tolerating well. Vital Signs: 20:21 BP 132 / 75; Pulse 84; Resp 18; Temp 97.9; Pulse Ox 95% on R/A; Weight 81.19 kg; Height ea 5 ft. 1 in. (154.94 cm); Pain 8/10; 21:39 BP 137 / 76; Pulse 69; Resp 15; Pulse Ox 96% on R/A; rv 21:45 BP 125 / 80; Pulse 67; Resp 14; Pulse Ox 96% on R/A; rv 22:30 BP 128 / 70; Pulse 78; Resp 18; Pulse Ox 98% ; ea 23:55 BP 130 / 72; Pulse 76; Resp 18; Temp 98; Pulse Ox 99% ; ea 20:21 Body Mass Index 33.82 (81.19 kg, 154.94 cm) ea Bow Coma Score: 22:15 Eye Response: spontaneous(4). Verbal Response: oriented(5). Motor Response: obeys rn commands(6). Total: 15. ED Course: 19:51 Patient arrived in ED. ag3 20:21 Triage completed. ea 20:22 Arm band placed on right wrist. Patient placed in an exam room, on a stretcher, on ea pulse oximetry. 20:25 Mike Sandoval MD is Attending Physician. rn 20:29 Josiah Dugan RN is Primary Nurse. rv 20:53 Patient has correct armband on for positive identification. Bed in low position. Call rv light in reach. Side rails up X 1. Pulse ox on. NIBP on. 20:53 No provider procedures requiring assistance completed. Inserted saline lock: 20 gauge rv in right antecubital area, using aseptic technique. Blood collected. 10/20 00:00 Patient transferred, IV remains in place. ea 17:56 CT Head Brain wo Cont In Process Unspecified. EDMS Administered Medications: 10/19 20:51 Drug: NS 0.9% 1000 ml Route: IV; Rate: 1000 ml; Site: right antecubital; rv 21:51 Follow up: IV Status: Completed infusion; IV Intake: 1000ml rv 20:52 Drug: Reglan 10 mg Route: IVP; Site: right antecubital; rv 21:51 Follow up: Response: No adverse reaction rv 20:52 Drug: Demerol 25 mg {Note: rass 0.} Route: IVP; Site: right antecubital; rv 21:51 Follow up: Response: No adverse reaction; Pain is decreased; RASS: Alert and Calm (0) rv 21:51 Drug: niCARdipine (25mg/250ml) 5 mg/hr Route: IV; Rate: calculated rate; Site: right rv antecubital; Intake: 21:51 IV: 1000ml; Total: 1000ml. rv Outcome: 22:17 ER care complete, transfer ordered by . rn 22:30 Instructed on the need for transfer, Demonstrated understanding of instructions. ea 10/20 00:00 Transferred by ground EMS to [facility], [facility], Transfer form completed. mary Condition: stable 00:01 Patient left the ED. ea Signatures: Dispatcher [employer] Mike Austin MD MD rn Antunez, Elena RN RN Josiah Kessler RN RN Rachel Jorgensen
[2018-10-20 01:13] VITALS: TEMP 97.9
[2018-10-20 01:15] VITALS: O2SAT 96
[2018-10-20 01:17] VITALS: BP 125/80
--- NOTE | 2018-10-21 11:45 | RAD REPORT ---
EXAM DESCRIPTION: ANASTASIA PITT [id number] - Head Brain Wo Cont ADDENDUM #1 Critical findings discussed with Dr. Sandoval. Electronically signed by: Ami Freedman MD 10/19/2018 10:17 PM CDT End of Addendum EXAM DESCRIPTION: Head Brain Wo Cont CLINICAL HISTORY: 63 years Female HEADACHE COMPARISON: None TECHNIQUE: Images were obtained in axial, sagittal, and coronal planes. This exam was performed according to our departmental dose-optimization program which includes use of Automated Exposure Control, adjustment of the mA and/or kV according to patient size and/or use of i terative reconstruction technique. FINDINGS: Abnormal increased attenuation left basal ganglionic region consistent with basal ganglion ic hemorrhage and intracerebral hematoma. The finding appears to involve the putamen. The finding josh sures 2.2 cm in transverse dimension, 1.9 cm in anterior posterior dimension, and 9 mm in superior-in ferior dimension. There is layering of blood products versus adjacent edema. Intraventricular extensi on of blood products is present. Blood is seen within the body as well as anterior and posterior horn s of the left lateral ventricle.. Mild ventricular enlargement noted. 2 mm midline shift to the right . No extra-axial blood collections seen. No abnormal areas of increased or decreased attenuation involv ing the right cerebral hemisphere. Lobular mucosal thickening left maxillary antrum. No evidence for skull fracture. Symmetric aeration mastoid air cells bilaterally. IMPRESSION: Findings consistent with left basal ganglionic hemorrhage and intracerebral hematoma. In traventricular extension is present with blood identified within the left lateral ventricle. Mild mid line shift to the right. Electronically signed by: Ami Freedman MD 10/19/2018 9:55 PM CDT Due to temporary technical issues with the PACS/Fluency reporting system, reports are being signed by the in house radiologist as a courtesy to ensure prompt reporting. The interpreting radiologist is f ully responsible for the content of the report.
== END 2018-10-20 00:01 | disposition short-term general hospital (02) ==
LOC: ER 19:48
DX: I61.9 Nontraumatic intracerebral hemorrhage, unspecified (principal); I10 Essential (primary) hypertension
CPT/HCPCS: 96361; 85025; 80048; 36415; 85610; 85730; 70450; 96375; 96374; 99285; J2765; J2175; J7030

== ENCOUNTER 2018-12-24 21:25 | Emergency (ER) | payer BC ==
--- OUTSIDE RECORDS SUMMARY | 2018-12-24 21:27 | XMS REPORT ---
:1955 Author Organization [facility] Address [address] [place] [address] [address]. [address] [place] [address] Care Team Providers Name Role Phone CARLOS MILLER Unavailable Unavailable Problems This patient has no known problems. Allergies, Adverse Reactions, Alerts This patient has no known allergies or adverse reactions. Medications This patient has no known medications. Results Test Description Test Time Test Comments Text Results Atomic Results Result Comments POCT-GLUCOSE METER 2018-10-22 11:57:00 Test Item Value Reference Range Comments POC-GLUCOSE METER (BEAKER) (test 105 mg/dL 70-110 TESTED AT [address] zagp=2202) [facility] [address] POCT-GLUCOSE [id number] 06:07:00 Test Item Value Reference Range Comments POC-GLUCOSE METER (BEAKER) 103 mg/dL 70-110 TESTED AT [address] (test yriq=4282) [place] [id number] POCT-GLUCOSE [id number] 05:42:00 Test Item Value Reference Range Comments POC-GLUCOSE METER (BEAKER) 94 mg/dL 70-110 TESTED AT [address] (test tndj=0583) [place] [address] [id number] 05:38:00 Test Item Value Reference Range Comments PHOSPHORUS (BEAKER) (test tifv=240) 3.0 mg/dL 2.3-4.7 [id number] 05:38:00 Test Item Value Reference Range Comments MAGNESIUM (BEAKER) (test kvfn=671) 2.2 mg/dL 1.6-2.6 BASIC METABOLIC [id number] 05:38:00 Test Item Value Reference Range Comments SODIUM (BEAKER) (test 135 meq/L 136-145 fglt=145) POTASSIUM (BEAKER) (test 3.7 meq/L 3.5-5.1 npyi=822) CHLORIDE (BEAKER) (test 99 meq/L 98-107 yikr=980) CO2 (BEAKER) (test 27 meq/L 22-29 fpoa=311) BLOOD UREA NITROGEN 14 mg/dL 7-21 (BEAKER) (test hcsq=492) CREATININE (BEAKER) (test 0.88 mg/dL 0.57-1.25 lulo=943) GLUCOSE RANDOM (BEAKER) 113 mg/dL 70-105 (test ltyn=901) CALCIUM (BEAKER) (test 9.0 mg/dL 8.4-10.2 kjkt=160) EGFR (BEAKER) (test 65 mL/min/1.73 sq m ESTIMATED GFR IS NOT vncn=7256) ACCURATE CREATININE CLEARANCE IN PREDICTING GLOMERULAR FILTRATION RATE. ESTIMATED GFR IS NOT APPLICABLE FOR DIALYSIS PATIENTS. CBC (HEMOGRAM ONLY)2018-10-22 04:50:00 Test Item Value Reference Range Comments WHITE BLOOD CELL COUNT (BEAKER) (test pyey=652) 10.5 K/ L 3.5-10.5 RED BLOOD CELL COUNT (BEAKER) (test wvmd=271) 4.59 M/ L 3.93-5.22 HEMOGLOBIN (BEAKER) (test rwfa=749) 14.5 GM/DL 11.2-15.7 HEMATOCRIT (BEAKER) (test nrer=395) 42.5 % 34.1-44.9 MEAN CORPUSCULAR VOLUME (BEAKER) (test fgyh=946) 92.6 fL 79.4-94.8 MEAN CORPUSCULAR HEMOGLOBIN (BEAKER) (test 31.6 pg 25.6-32.2 tgji=080) MEAN CORPUSCULAR HEMOGLOBIN CONC (BEAKER) (test 34.1 GM/DL 32.2-35.5 qezg=398) RED CELL DISTRIBUTION WIDTH (BEAKER) (test 13.4 % 11.7-14.4 iycx=021) PLATELET COUNT (BEAKER) (test ldun=223) 266 K/CU MM 150-450 MEAN PLATELET VOLUME (BEAKER) (test ouux=658) 10.2 fL 9.4-12.3 NUCLEATED RED BLOOD CELLS (BEAKER) (test 0 /100 WBC 0-0 plif=297) POCT-GLUCOSE [id number] 18:42:00 Test Item Value Reference Range Comments POC-GLUCOSE METER (BEAKER) 142 mg/dL 70-110 TESTED AT [facility] [address] [facility] (test wspc=6533) [facility] [address] POCT-GLUCOSE [id number] 17:02:00 Test Item Value Reference Range Comments POC-GLUCOSE METER (BEAKER) 132 mg/dL 70-110 TESTED AT [facility] [address] [facility] (test chcn=3219) [facility] [address] POCT-GLUCOSE [id number] 11:30:00 Test Item Value Reference Range Comments POC-GLUCOSE METER (BEAKER) 125 mg/dL 70-110 TESTED AT [address] (test uthf=0408) [facility] [address] RAPID DRUG SCREEN, [id number] 10:29:00 Test Item Value Reference Range Comments BARBITURATE URINE (BEAKER) (test ixfu=129) Negative Negative BENZODIAZEPINE SCREEN URINE (BEAKER) (test Negative Negative pijn=285) COCAINE (METAB.) SCREEN (BEAKER) (test dwjk=5928) Negative Negative METHADONE SCREEN (BEAKER) (test fgqd=5031) Negative Negative OPIATE SCREEN URINE (BEAKER) (test voql=550) Positive Negative CANNABINOID SCREEN URINE (BEAKER) (test qtpx=250) Negative Negative AMPH/METHAMPH SCREEN (BEAKER) (test gsmx=5805) Negative Negative PHENCYCLIDINE SCREEN URINE (BEAKER) (test gfjo=900) Negative Negative DRUG CUTOFF CONC.Cocaine 300 ng/mL Cannabinoid 50 ng/mLBenzodiazepine 200 ng/mLBarbiturate 200 ng/ mLPhencyclidine 25 ng/mLOpiate 300 ng/mLMethadone 300 ng/mLAmphetamine/ 1000 ng/mL MethamphetamineThis assay provides an unconfirmed qualitative test result for the clinical management of patients in emergency situations. Chain of custody not maintained. Some farg-ruq-sxjszna medications, as well as adulterants, may cause inaccurate results. Clinical correlation should be applied. A more comprehensivedrug screen or confirmation of a detected drug may be performed upon request.CT, BRAIN, WITHOUT [id number] 07:32:00FINAL REPORT CT, BRAIN, WITHOUT CONTRAST CLINICAL INDICATION: Cerebral hemorrhage suspected COMPARISON: 10/20/2018 TECHNIQUE: Noncontrast axial CT imaging of the brain and skull. DOSE REDUCTION : Dose modulation, iterative reconstruction, and/or weight-based adjustment of the mA/kV was utilized to reduce the radiation dose to as low as reasonably achievable. FINDINGS:No significant interval change in left basal ganglia hemorrhage extending to the ventricular system with acuteblood products layering within the lateral ventricles. No hydrocephalus. Unchanged background of mild chronic microvascular ischemic changes of the periventricular and subcortical white matter are present. Orbits are within normal limits. No obstructive paranasal sinus disease. IMPRESSION: No significant interval change in left basal ganglia hemorrhage extending to the ventricular system with acute blood products layering within the lateral ventricles. No hydrocephalus. If there is persistent clinical concern for intracranial pathology, MR examination is recommended for further characterization. Signed: Falguni Cohen MDReport Verified Date/Time: 10/21/2018 07:32:00 Reading Location: [facility] C013V Neuro Reading Room [id number] 04:00:00 Test Item Value Reference Range Comments PHOSPHORUS (BEAKER) (test genb=224) 3.3 mg/dL 2.3-4.7 Once on admission and Daily AM afterwardsOnce on admission and Daily AM afterwardsOnce on admission and Daily AM [id number] 04:00:00 Test Item Value Reference Range Comments MAGNESIUM (BEAKER) (test fvdh=383) 2.3 mg/dL 1.6-2.6 Once on admission and Daily AM afterwardsOnce on admission and Daily AM afterwardsOnce on admission and Daily AM afterwardsBASIC METABOLIC [id number] 04:00:00 Test Item Value Reference Range Comments SODIUM (BEAKER) (test 136 meq/L 136-145 eoge=745) POTASSIUM (BEAKER) (test 4.0 meq/L 3.5-5.1 wnfd=003) CHLORIDE (BEAKER) (test 101 meq/L 98-107 dblj=426) CO2 (BEAKER) (test 29 meq/L 22-29 syfd=769) BLOOD UREA NITROGEN 19 mg/dL 7-21 (BEAKER) (test lgxy=274) CREATININE (BEAKER) (test 0.89 mg/dL 0.57-1.25 vgcn=072) GLUCOSE RANDOM (BEAKER) 123 mg/dL 70-105 (test dits=911) CALCIUM (BEAKER) (test 9.4 mg/dL 8.4-10.2 gjws=825) EGFR (BEAKER) (test 64 mL/min/1.73 sq m ESTIMATED GFR IS NOT cmmk=6577) ACCURATE CREATININE CLEARANCE IN PREDICTING GLOMERULAR FILTRATION RATE. ESTIMATED GFR IS NOT APPLICABLE FOR DIALYSIS PATIENTS. Once on admission and Daily AM afterwardsOnce on admission and Daily AM afterwardsOnce on admission and Daily AM afterwardsPOCT-GLUCOSE [id number] 01:18:00 Test Item Value Reference Range Comments POC-GLUCOSE METER (BEAKER) 147 mg/dL 70-110 TESTED AT [facility] [address] [facility] (test gfzy=7372) [facility] [address] POCT-GLUCOSE [id number] 20:09:00 Test Item Value Reference Range Comments POC-GLUCOSE METER (BEAKER) 132 mg/dL 70-110 TESTED AT [address] (test npzr=6023) [facility] [address] [id number] 18:23:00 Test Item Value Reference Range Comments POTASSIUM (BEAKER) (test mkcs=040) 3.9 meq/L 3.5-5.1 CT, CTANGIO [id number] 17:30:00Reason for exam:->Intracranial hemorrhageWhat is the patient's sedation requirement?->No SedationFINAL REPORT CLINICAL HISTORY: Neuro deficit, acute, stroke suspectedIntracranial hemorrhage TECHNIQUE: Initially, noncontrast head CT images were performed. Contiguous contrast-enhanced axial images through the head with coronal and sagittal reformations to assess the arterial circulation. 3-D reconstructions were performed using a volume rendered technique separately on a workstation. This exam was performed according to the departmental dose optimization program which includes automated exposure control, adjustment of the mA and/or kV according to the patient size, and/or use of an iterative reconstruction technique. COMPARISON: None FINDINGS:There is a parenchymal hematoma centered within the left caudate head and periventricular white matter , with extension into the left lateral ventricle. There is a minimal rightward midline shift. No hydrocephalus. The skull is intact. No intracranial aneurysm , focal stenosis, or proximal branch vessel occlusion. No vascular malformation in the region of parenchymal hemorrhage. The major intradural venous sinuses are patent. IMPRESSION:1.Parenchymal hemorrhage centered within the left caudate head and periventricular white matter, with extension into the left lateral ventricle. Minimal rightward midline shift. No hydrocephalus.Per chart review, the clinical team is aware of this finding. No outside images are available for comparison.2.No underlying aneurysm or vascular malformation. Signed: Alda Vieira Verified Date/Time: 10/20/2018 17:30:34 05:30 PMPOCT- GLUCOSE [id number] 12:09:00 Test Item Value Reference Range Comments POC-GLUCOSE METER (BEAKER) 120 mg/dL 70-110 TESTED AT [facility] [address] [facility] (test dtqk=6736) [facility] [address] [id number] 09:25:00 Test Item Value Reference Range Comments PARTIAL THROMBOPLASTIN TIME (BEAKER) (test 31.0 seconds 22.5-36.0 dftk=575) PROTHROMBIN TIME/[id number] 09:24:00 Test Item Value Reference Range Comments PROTIME (BEAKER) (test hkvn=655) 14.8 seconds 11.9-14.2 INR (BEAKER) (test lumy=828) 1.2 <=5.9 Effective 07/03/2018: PT Reference Range ChangeNew: 11.9-14.2 Previous: 11.7- 14.7RECOMMENDED COUMADIN/WARFARIN INR THERAPY RANGESSTANDARD DOSE: 2.0-3.0 Includes: PROPHYLAXIS for venous thrombosis, systemic embolization; TREATMENT for venous thrombosis and/or pulmonary embolus.HIGH RISK: Target INR is2.5-3.5 for patients wiht mechanical heart valves.HEPATIC FUNCTION [id number] 08:51 :00 Test Item Value Reference Range Comments TOTAL PROTEIN (BEAKER) (test nsmp=772) 6.9 gm/dL 6.0-8.3 ALBUMIN (BEAKER) (test dqdy=2615) 3.8 g/dL 3.5-5.0 BILIRUBIN TOTAL (BEAKER) (test cuwe=540) 1.0 mg/dL 0.2-1.2 BILIRUBIN DIRECT (BEAKER) (test vpvq=175) 0.4 mg/dL 0.1-0.5 ALKALINE PHOSPHATASE (BEAKER) (test boma=441) 70 U/L 40-150 AST (SGOT) (BEAKER) (test snhb=187) 22 U/L 5-34 ALT (SGPT) (BEAKER) (test cmew=677) 19 U/L 6-55 BASIC METABOLIC [id number] 05:25:00 Test Item Value Reference Range Comments SODIUM (BEAKER) (test 133 meq/L 136-145 zamd=231) POTASSIUM (BEAKER) (test 3.5 meq/L 3.5-5.1 eemg=066) CHLORIDE (BEAKER) (test 98 meq/L 98-107 udtg=999) CO2 (BEAKER) (test 27 meq/L 22-29 knox=188) BLOOD UREA NITROGEN 18 mg/dL 7-21 (BEAKER) (test lful=996) CREATININE (BEAKER) (test 1.00 mg/dL 0.57-1.25 tmhi=493) GLUCOSE RANDOM (BEAKER) 152 mg/dL 70-105 (test azyg=056) CALCIUM (BEAKER) (test 9.4 mg/dL 8.4-10.2 hshz=539) EGFR (BEAKER) (test 56 mL/min/1.73 sq m ESTIMATED GFR IS NOT hktv=5285) ACCURATE CREATININE CLEARANCE IN PREDICTING GLOMERULAR FILTRATION RATE. ESTIMATED GFR IS NOT APPLICABLE FOR DIALYSIS PATIENTS. CBC W/PLT COUNT & AUTO [id number] 04:52:00 Test Item Value Reference Range Comments WHITE BLOOD CELL COUNT (BEAKER) (test esfs=504) 11.9 K/ L 3.5-10.5 RED BLOOD CELL COUNT (BEAKER) (test kiim=727) 4.51 M/ L 3.93-5.22 HEMOGLOBIN (BEAKER) (test wekh=459) 14.1 GM/DL 11.2-15.7 HEMATOCRIT (BEAKER) (test jrxp=794) 41.4 % 34.1-44.9 MEAN CORPUSCULAR VOLUME (BEAKER) (test rwjs=843) 91.8 fL 79.4-94.8 MEAN CORPUSCULAR HEMOGLOBIN (BEAKER) (test 31.3 pg 25.6-32.2 qiov=611) MEAN CORPUSCULAR HEMOGLOBIN CONC (BEAKER) (test 34.1 GM/DL 32.2-35.5 mdlw=724) RED CELL DISTRIBUTION WIDTH (BEAKER) (test 13.4 % 11.7-14.4 kpei=277) PLATELET COUNT (BEAKER) (test sgwj=094) 281 K/CU MM 150-450 MEAN PLATELET VOLUME (BEAKER) (test vaxo=296) 10.1 fL 9.4-12.3 NUCLEATED RED BLOOD CELLS (BEAKER) (test 0 /100 WBC 0-0 hqtv=150) NEUTROPHILS RELATIVE PERCENT (BEAKER) (test 78 % iouy=229) LYMPHOCYTES RELATIVE PERCENT (BEAKER) (test 13 % qjny=014) MONOCYTES RELATIVE PERCENT (BEAKER) (test 8 % wmrm=888) EOSINOPHILS RELATIVE PERCENT (BEAKER) (test 0 % gxgk=103) BASOPHILS RELATIVE PERCENT (BEAKER) (test 0 % mokc=506) NEUTROPHILS ABSOLUTE COUNT (BEAKER) (test 9.36 K/ L 1.56-6.13 ijal=401) LYMPHOCYTES ABSOLUTE COUNT (BEAKER) (test 1.55 K/ L 1.18-3.74 gmao=249) MONOCYTES ABSOLUTE COUNT (BEAKER) (test 0.91 K/ L 0.24-0.36 xfar=694) EOSINOPHILS ABSOLUTE COUNT (BEAKER) (test 0.01 K/ L 0.04-0.36 cghb=571) BASOPHILS ABSOLUTE COUNT (BEAKER) (test 0.04 K/ L 0.01-0.08 mlsq=199) IMMATURE GRANULOCYTES-RELATIVE PERCENT (BEAKER) 1 % 0-1 (test txtb=5113) POCT-GLUCOSE [id number] 02:25:00 Test Item Value Reference Range Comments POC-GLUCOSE METER (BEAKER) 113 mg/dL 70-110 TESTED AT [facility] [address] [facility] (test npxu=8558) [facility] [address]
--- OUTSIDE RECORDS SUMMARY | 2018-12-24 21:27 | XMS REPORT ---
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
[2018-12-24] MEDS ORDERED: ACETAMINOPHEN 500 MG TAB ONE (22:12)
[2018-12-24 22:43] LABS: Albumin 3.8 g/dL (3.4-5.0); Bilirubin Direct 0.2 mg/dL (0-0.2); Potassium 3.4 mmol/L (3.5-5.1); Protein, Total 7.3 g/dL (6.4-8.2)
[2018-12-24 22:56] LABS: Absolute Lymphocytes (CBC) 0.4 K/uL (0.7-4.9); Basophils % 0.5 % (0-1.3); Hematocrit 41.8 % (36.0-45.0); Lymphocytes % 4.4 % (15.3-44.8); MPV 9.5 fL (7.6-11.3); RBC Red Blood Cell Count 4.43 M/uL (3.86-4.86)
[2018-12-24] MEDS ORDERED: MORPHINE 4 MG/ML SYR ONE (23:02)
[2018-12-24] MEDS ORDERED: ONDANSETRON 4 MG/2 ML VIAL ONE (23:02)
[2018-12-25 00:05] LABS: Blood Morphology Comment NOT SEEN (NOT SEEN); Platelet Estimate ADEQ
[2018-12-25] MEDS ORDERED: NA CHLORIDE 0.9% 1,000 ML ONE (00:33)
--- NOTE | 2018-12-25 00:49 | ER ---
Nurse's Notes [facility] Name: Manju Novak Age: 63 yrs Sex: Female : 1955 Arrival Date: 12/24/2018 Time: 21:28 Bed 14 Private MD: Diagnosis: Dizziness and giddiness;Influenza due to identified novel influenza A virus Presentation: 12/24 21:48 Presenting complaint: Patient states: "I feel like I'm having the same symptoms as I lp1 did when I had my stroke in October"; States headache, dizziness, N/V and generalized weakness since 1000 this morning. Transition of care: patient was not received from another setting of care. Onset of symptoms was December 24, 2018 at 10:00. Risk Assessment: Do you want to hurt yourself or someone else? Patient reports no desire to harm self or others. Initial Sepsis Screen: Does the patient meet any 2 criteria? No. Patient's initial sepsis screen is negative. Does the patient have a suspected source of infection? No. Patient's initial sepsis screen is negative. Care prior to arrival: None. 21:48 Method Of Arrival: Wheelchair lp1 21:48 Acuity: PHILIP 3 lp1 Historical: - Allergies: 21:51 PENICILLINS; lp1 - Home Meds: 21:51 telmisartan-hydrochlorothiazid 40-12.5 mg Oral tab [Active]; gabapentin oral oral lp1 [Active]; - PMHx: 21:51 Hypertension; CVA; lp1 - PSHx: 21:51 Hysterectomy; Neck surgery; lp1 - Immunization history:: Adult Immunizations up to date. - Social history:: Smoking status: Patient/guardian denies using tobacco. - Ebola Screening: : No symptoms or risks identified at this time. Screenin:51 Abuse screen: Denies threats or abuse. Denies injuries from another. Nutritional lp1 screening: No deficits noted. Tuberculosis screening: No symptoms or risk factors identified. 22:30 Fall Risk None identified. jb4 Assessment: 22:00 General: Appears in no apparent distress. uncomfortable, Behavior is calm, cooperative, jb4 appropriate for age. Pain: Complains of pain in headache. Pain does not radiate. Pain currently is 9 out of 10 on a pain scale. Neuro: Level of Consciousness is awake, alert, obeys commands, Oriented to person, place, time, situation. Cardiovascular: Patient's skin is warm and dry. Respiratory: Airway is patent Respiratory effort is even, unlabored, Respiratory pattern is regular, symmetrical. GI: Abdomen is round non-distended, Reports nausea, vomiting. : No signs and/or symptoms were reported regarding the genitourinary system. EENT: No signs and/or symptoms were reported regarding the EENT system. Derm: Skin is intact, Skin is pink, warm \\T\\ dry. Musculoskeletal: Circulation, motion, and sensation intact. Range of motion: intact in all extremities. 22:36 Reassessment: Patient appears in no apparent distress at this time. Patient and/or jb4 family updated on plan of care and expected duration. Pain level reassessed. Patient is alert, oriented x 3, equal unlabored respirations, skin warm/dry/pink. 23:53 Reassessment: Patient appears in no apparent distress at this time. Patient and/or jb4 family updated on plan of care and expected duration. Pain level reassessed. Patient is alert, oriented x 3, equal unlabored respirations, skin warm/dry/pink. 12/25 01:07 Reassessment: Patient appears in no apparent distress at this time. Patient and/or jb4 family updated on plan of care and expected duration. Pain level reassessed. Patient is alert, oriented x 3, equal unlabored respirations, skin warm/dry/pink. D/c pending completion of IV fluids. Vital Signs: 12/24 21:49 BP 122 / 77; Pulse 119; Resp 20; Temp 101.3(O); Pulse Ox 93% on R/A; Weight 77.11 kg lp1 (R); Height 5 ft. 1 in. (154.94 cm); Pain 9/10; 22:30 BP 144 / 77; Pulse 113; Resp 18; Pulse Ox 95% on R/A; jb4 23:45 BP 102 / 66; Pulse 101; Resp 16; Temp 99.2(O); Pulse Ox 93% on R/A; jb4 12/25 01:00 BP 104 / 66; Pulse 88; Resp 16; Pulse Ox 94% on R/A; jb4 12/24 21:49 Body Mass Index 32.12 (77.11 kg, 154.94 cm) lp1 ED Course: 12/24 21:28 Patient arrived in ED. cl3 21:43 Martin Lu MD is Attending Physician. tw4 21:49 Triage completed. lp1 21:50 Arm band placed on left wrist. lp1 21:56 Bernardino Fields, RN is Primary Nurse. jb4 22:00 Patient has correct armband on for positive identification. Bed in low position. Call jb4 light in reach. Side rails up X 1. Pulse ox on. NIBP on. 22:00 Initial lab(s) drawn, by me, sent to lab. Inserted saline lock: 20 gauge in right jb4 wrist, using aseptic technique. Blood collected. 23:24 CT Head Brain wo Cont In Process Unspecified. EDMS 23:25 CT completed. Patient tolerated procedure well. Patient moved to CT via stretcher. Patient moved back from CT. 12/25 01:25 No provider procedures requiring assistance completed. IV discontinued, intact, jb4 bleeding controlled, No redness/swelling at site. Pressure dressing applied. Administered Medications: 12/24 22:20 Drug: Tylenol 1000 mg Route: PO; jb4 23:30 Follow up: Response: No adverse reaction; Temperature is decreased jb4 22:58 Drug: Zofran 4 mg Route: IVP; Site: right wrist; jb4 23:30 Follow up: Response: No adverse reaction jb4 23:00 Drug: morphine 4 mg {Note: Rass score 0.} Route: IVP; Site: right wrist; jb4 23:30 Follow up: Response: No adverse reaction; Pain is decreased; RASS: Alert and Calm (0) [facility] 12/25 00:30 Drug: NS 0.9% 1000 ml Route: IV; Rate: 1 bolus; Site: right antecubital; jb4 01:26 Follow up: Response: No adverse reaction; IV Status: Completed infusion; IV Intake: jb4 1000ml Intake: : IV: 1000ml; Total: 1000ml. 4 Outcome: 00:48 Discharge ordered by . tw4 01:25 Discharged to home ambulatory, with family. jb4 01:25 Condition: stable 01:25 Discharge instructions given to patient, family, Instructed on discharge instructions, follow up and referral plans. medication usage, Demonstrated understanding of instructions, follow-up care, medications, Prescriptions given X 3. 01:27 Patient left the ED. jb4 Signatures: Dispatcher [employer] EDMS Luca Witt Laura, RN RN lp1 Bernardino Fields RN RN jb4 Martin Lu MD MD tw4 Domingo Bonilla cl3 Corrections: (The following items were deleted from the chart) 12/24 22:34 20:30 BP 144 / 77; Pulse 113bpm; Resp 18bpm; Pulse Ox 95% RA; jb4 jb4
--- NOTE | 2018-12-25 00:49 | EDPHYS ---
Physician Documentation [facility] Name: Manju Novak Age: 63 yrs Sex: Female : 1955 Arrival Date: 12/24/2018 Time: 21:28 Bed 14 Private MD: ED Physician Martin Lu HPI: 12/25 07:40 This 63 yrs old Female presents to ER via Wheelchair with complaints of tw4 Nausea/Vomiting, Headache. 07:40 The patient presents to the emergency department with nausea, vomiting. Onset: The tw4 symptoms/episode began/occurred today. Possible causes: unknown. The symptoms are aggravated by nothing. The symptoms are alleviated by nothing. Associated signs and symptoms: Pertinent positives: headache. Severity of symptoms: At their worst the symptoms were moderate in the emergency department the symptoms are unchanged. The patient has not experienced similar symptoms in the past. 07:40 Associated signs and symptoms: Pertinent positives: dizziness, Pertinent negatives: tw4 abdominal pain, anorexia, belching, constipation, diarrhea. Historical: - Allergies: 12/24 21:51 PENICILLINS; lp1 - Home Meds: 21:51 telmisartan-hydrochlorothiazid 40-12.5 mg Oral tab [Active]; gabapentin oral oral lp1 [Active]; - PMHx: 21:51 Hypertension; CVA; lp1 - PSHx: 21:51 Hysterectomy; Neck surgery; lp1 - Immunization history:: Adult Immunizations up to date. - Social history:: Smoking status: Patient/guardian denies using tobacco. - Ebola Screening: : No symptoms or risks identified at this time. ROS: 12/25 07:40 Constitutional: Negative for fever, chills, and weight loss, Eyes: Negative for injury, tw4 pain, redness, and discharge, Cardiovascular: Negative for chest pain, palpitations, and edema, Respiratory: Negative for shortness of breath, cough, wheezing, and pleuritic chest pain, Back: Negative for injury and pain, MS/Extremity: Negative for injury and deformity, Skin: Negative for injury, rash, and discoloration. Abdomen/GI: Positive for nausea and vomiting, Negative for abdominal pain, constipation, abdominal cramps, abdominal distension, anorexia, dysphagia, hematemesis, black/tarry stool, rectal pain. Neuro: Positive for dizziness, headache, Negative for altered mental status, hearing loss, loss of consciousness, numbness, seizure activity, speech changes, syncope, near syncope, tingling, tinnitus, tremor, visual changes, weakness. Exam: 07:40 Constitutional: This is a well developed, well nourished patient who is awake, alert, tw4 and in no acute distress. Head/Face: Normocephalic, atraumatic. Chest/axilla: Normal chest wall appearance and motion. Nontender with no deformity. No lesions are appreciated. Cardiovascular: Regular rate and rhythm with a normal S1 and S2. No gallops, murmurs, or rubs. Normal PMI, no JVD. No pulse deficits. Respiratory: Lungs have equal breath sounds bilaterally, clear to auscultation and percussion. No rales, rhonchi or wheezes noted. No increased work of breathing, no retractions or nasal flaring. Abdomen/GI: Soft, non-tender, with normal bowel sounds. No distension or tympany. No guarding or rebound. No evidence of tenderness throughout. Back: No spinal tenderness. No costovertebral tenderness. Full range of motion. MS/ Extremity: Pulses equal, no cyanosis. Neurovascular intact. Full, normal range of motion. Neuro: Awake and alert, GCS 15, oriented to person, place, time, and situation. Cranial nerves II-XII grossly intact. Motor strength 5/5 in all extremities. Sensory grossly intact. Cerebellar exam normal. Normal gait. Vital Signs: 12/24 21:49 BP 122 / 77; Pulse 119; Resp 20; Temp 101.3(O); Pulse Ox 93% on R/A; Weight 77.11 kg lp1 (R); Height 5 ft. 1 in. (154.94 cm); Pain 9/10; 22:30 BP 144 / 77; Pulse 113; Resp 18; Pulse Ox 95% on R/A; jb4 23:45 BP 102 / 66; Pulse 101; Resp 16; Temp 99.2(O); Pulse Ox 93% on R/A; jb4 12/25 01:00 BP 104 / 66; Pulse 88; Resp 16; Pulse Ox 94% on R/A; jb4 12/24 21:49 Body Mass Index 32.12 (77.11 kg, 154.94 cm) lp1 MDM: 12/24 22:00 Patient medically screened. 12/25 07:40 Differential diagnosis: Nonspecific abd pain, gastritis, cholecystitis, appendicitis, tw4 diverticulitis, viral gastroenteritis. Data reviewed: vital signs, nurses notes. Data reviewed: lab test result(s), CBC, white blood cell count, hemoglobin, hematocrit, platelets, electrolytes, sodium, potassium, chloride, serum bicarbonate, BUN, creatinine, serum glucose, Flu: positive hepatic panel. Data interpreted: Pulse oximetry: Interpretation: normal. Counseling: I had a detailed discussion with the patient and/or guardian regarding: the historical points, exam findings, and any diagnostic results supporting the discharge/admit diagnosis, lab results, radiology results. Medication response: morphine relieved the patient's pain. Symptoms have resolved. Response to treatment: the patient's symptoms have resolved after treatment, and as a result, I will discharge patient. Special discussion: I discussed with the patient/guardian in detail that at this point there is no indication for admission to the hospital. It is understood, however, that if the symptoms persist or worsen the patient needs to return immediately for re-evaluation. 12/24 21:43 Order name: Basic Metabolic Panel; Complete Time: 00:33 12/25 00:33 Interpretation: Normal except: K 3.4; GFR 45; GLUC 165. 12/24 21:43 Order name: CBC with Diff; Complete Time: 00:33 12/25 00:37 Interpretation: Normal except: CHICHI% 85.9; LYM% 4.4. 12/24 21:43 Order name: Creatinine for Radiology; Complete Time: 00:33 12/24 21:43 Order name: Hepatic Function; Complete Time: 00:33 12/25 00:39 Interpretation: Within normal limits. 12/24 21:43 Order name: Lipase; Complete Time: 00:33 tw4 12/25 00:39 Interpretation: Within normal limits: LIP 64. 12/24 23:01 Order name: Manual Differential; Complete Time: 00:33 EDMS 12/25 00:39 Interpretation: Normal except: BANDS [F] 4; LYM 3; MONO 11. tw12/24 21:43 Order name: IV Saline Lock; Complete Time: 22:17 tw4 12/24 21:43 Order name: Labs collected and sent; Complete Time: 22:17 4 12/24 22:48 Order name: CT Head Brain wo Cont 4 12/25 00:39 Order name: Flu tw4 Administered Medications: 12/24 22:20 Drug: Tylenol 1000 mg Route: PO; 4 23:30 Follow up: Response: No adverse reaction; Temperature is decreased [facility] 22:58 Drug: Zofran 4 mg Route: IVP; Site: right wrist; jb4 23:30 Follow up: Response: No adverse reaction jb 23:00 Drug: morphine 4 mg {Note: Rass score 0.} Route: IVP; Site: right wrist; jb4 23:30 Follow up: Response: No adverse reaction; Pain is decreased; RASS: Alert and Calm (0) [facility] 12/25 00:30 Drug: NS 0.9% 1000 ml Route: IV; Rate: 1 bolus; Site: right antecubital; [facility] 01:26 Follow up: Response: No adverse reaction; IV Status: Completed infusion; IV Intake: jb4 1000ml Disposition: 12/25/18 00:48 Discharged to Home. Impression: Dizziness and giddiness, Influenza due to identified novel influenza A virus. - Condition is Stable. - Discharge Instructions: Dizziness, General Headache Without Cause, Influenza, Adult. - Prescriptions for Fiorinal 50- 325-40 mg Oral Capsule - take 1 capsule by ORAL route every 4 hours As needed - not to exceed 6 capsules per day; 20 capsule. Meclizine 25 mg Oral Tablet - take 1 tablet by ORAL route every 8 hours As needed; 30 tablet. Tamiflu 75 mg Oral Capsule - take 1 tablet by ORAL route every 12 hours for 5 days; 10 tablet. - Medication Reconciliation Form, Thank You Letter, Antibiotic Education, Prescription Opioid Use form. - Follow up: Private Physician; When: Upon discharge from the Emergency Department; Reason: Recheck today's complaints, Continuance of care. - Problem is new. - Symptoms have improved. Signatures: Dispatcher [employer] EDMS Khushboo Thompson RN RN lp1 Bernardino Fields RN RN jb4 Martin Lu MD MD tw4 Corrections: (The following items were deleted from the chart) 01:18 00:48 12/25/2018 00:48 Discharged to Home. Impression: viral syndrome; Dizziness and tw4 giddiness. Condition is Stable. Forms are Medication Reconciliation Form, Thank You Letter, Antibiotic Education, Prescription Opioid Use. Follow up: Private Physician; When: Upon discharge from the Emergency Department; Reason: Recheck today's complaints, Continuance of care. Problem is new. Symptoms have improved. tw4 01:27 01:18 12/25/2018 00:48 Discharged to Home. Impression: Dizziness and giddiness; jb4 Influenza due to identified novel influenza A virus. Condition is Stable. Discharge Instructions: Dizziness, General Headache Without Cause. Prescriptions for Fiorinal 50-325-40 mg Oral Capsule - take 1 capsule by ORAL route every 4 hours As needed - not to exceed 6 capsules per day; 20 capsule, Meclizine 25 mg Oral Tablet - take 1 tablet by ORAL route every 8 hours As needed; 30 tablet. and Forms are Medication Reconciliation Form, Thank You Letter, Antibiotic Education, Prescription Opioid Use. Follow up: Private Physician; When: Upon discharge from the Emergency Department; Reason: Recheck today's complaints, Continuance of care. Problem is new. Symptoms have improved. tw4
[2018-12-25 01:42] VITALS: TEMP 99.2
[2018-12-25 01:43] VITALS: BP 104/66; O2SAT 94
--- NOTE | 2018-12-25 11:22 | RAD REPORT ---
EXAM DESCRIPTION: CT Head Without Intravenous Contrast CLINICAL HISTORY: The patient is 63 years old and is Female; HEADACHE TECHNIQUE: Axial computed tomography images of the head/brain without intravenous contrast. Sagitt al and coronal reformatted images were created and reviewed. This CT exam was performed using one o r more of the following dose reduction techniques: automated exposure control, adjustment of the mA and/or kV according to patient size, and/or use of iterative reconstruction technique. COMPARISON: CT of the head October 19, 2018. FINDINGS: BRAIN: Unremarkable. The bowers-white matter differentiation is preserved . No hemorrhag e. No significant white matter disease. No edema. No extra-axial fluid collections. VENTRICLES: Unremarkable. No ventriculomegaly. BONES/JOINTS: No acute fracture. SOFT TISSUES: Unremarkable. SINUSES: Unremarkable as visualized. No acute sinusitis. MASTOID AIR CELLS: Unremarkable as visualized. No mastoid effusion. ORBITS: Unremarkable as visualized. IMPRESSION: No acute intracranial findings. Electronically signed by: Olya Champion MD 12/24/2018 11:27 PM [employer]OTECTIVE SIGNAL OPERATIONS SUPERVISOR Due to temporary technical issues with the PACS/Fluency reporting system, reports are being signed by the in house radiologist as a courtesy to ensure prompt reporting. The interpreting radiologist is f ully responsible for the content of the report.
== END 2018-12-25 01:27 | disposition home or self-care (01) ==
LOC: ER 21:25
DX: J10.1 Influenza due to other identified influenza virus with other respiratory manifestations (principal); I10 Essential (primary) hypertension; Z88.0 Allergy status to penicillin; Z86.73 Personal history of transient ischemic attack (TIA), and cerebral infarction without residual deficits
CPT/HCPCS: 96361; 85025; 80048; 36415; 80076; 83690; 87804 ×2; 70450; 96375; 96374; 99284; J7030; J2405

== ENCOUNTER → 2019-07-02 | Day surgery (SDC) | payer BC ==
--- OUTSIDE RECORDS SUMMARY | 2019-07-02 10:29 | XMS REPORT | Clinical Summary ---
:1955 Author Organization [facility] Address [address] [place] [address] Care Team Providers Name Role Phone Darvin Martin MD Primary Care Provider Allergies Active Allergy Reactions Severity Noted Date Comments Penicillins Hives, Swelling High 1957 [place] Swelling High 04/19/2018 Medications Medication Sig Dispensed Refills Start Date End Date Status telmisartan-hydrochl Take 1 tablet 0 Active orothiazid (MICARDIS by mouth HCT) 40-12.5 mg per daily. tablet pregabalin (LYRICA) Take 75 mg by 0 Active 75 MG capsule mouth daily. trospium chloride Take 60 mg by 0 Active (TROSPIUM ORAL) mouth daily. OMEPRAZOLE ORAL Take 40 mg by 0 Active mouth daily. cyclobenzaprine Take 1/2 to 1 40 tablet 0 08/01/2018 Active (FLEXERIL) 10 mg tab orally 3 tablet times daily as needed gabapentin 1 capsule 2 0 11/08/2018 Active (NEURONTIN) 100 mg (two) times a capsule day. escitalopram Take 10 mg by 0 11/14/19 Dis continued (LEXAPRO) 10 MG mouth daily. 19 ( Med List tablet Cleanup) ibuprofen Take 800 mg 0 08/02/19 Disconti nued (ADVIL,MOTRIN) 800 by mouth 19 ( Stop Taking at MG tablet daily. Discharge) acetaminophen-codein Take 1-2 40 tablet 0 08/01/2018 08/12/19 e (TYLENOL WITH tablets by 19 CODEINE #3) 300-30 mouth 4 mg per tablet (four) times a day as needed for moderate pain for up to 10 days. 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) (Primary Dx); MD Kwaku Essential hyper tension 11/04/2018 Hospital Encounter Radiology Kwaku Corado MD 11/04/2018 Hospital Encounter Radiology Kwaku Corado MD 11/04/2018 Hospital Encounter Corey Luna Cerebrova scular MD Kt accident (CVA), unspecified mec hanism (HCC) 11/04/2018 Office Visit Neurosurgery Corey Draper Cerebrovascular accident (CVA) due to other mechanism (HCC) (Primary Dx); MD Kt Fixation hardwa re in spine; Follow-up exami nation following surgery 11/04/2018 Hospital Encounter Radiology Corey Draper Cervical radiculopathy MD Kt 11/04/2018 Orders Only Corey Francois Cerebrovascular MD Kt accident (CVA), unspecified mec hanism (HCC) (Primary Dx) 09/02/2018 Office Visit Corey Francois Cervicalgia (Pr imary Dx); MD Kt Follow-up exami nation following surgery; Fixation hardwa re in spine 09/02/2018 Hospital Encounter Radiology Corey Draper Cervical vertebral MD Kt fusion 09/02/2018 Orders Only Corey Francois Cervical radicu lopathy MD Kt (Primary Dx) 08/02/2018 Orders Only Neurosurgery Jessenia Cavanaugh Cervical verteb ral CUSHION WORKER fusion (Primary Dx) 07/31/2018 Surgery General Surgery Corey Draper ANTERIOR CER VICLEE Meraz MD DISCECTOMY WITH FUSION C3-C4 07/31/2018 Anesthesia Event General Surgery Tenzin Wei MD [place], [place], NP 07/31/2018 - Hospital Encounter Corey Francois Cervical spondylosis 08/01/2018 MD Kt with myelopathy 07/04/2018 Pre-Admit Testing Pre-Admission Corey Draper Preop lauren ting (Primary Appointment Testing MD Kt Dx) 07/04/2018 Office Visit Neurosurgery Corey Draper HNP (herniated nucleus pulposus) with myelopathy, cervical (Primary Dx); MD Kt Cervicalgia 07/04/2018 Hospital Encounter Radiology Corey Draper (paulo iated nucleus pulposus) with myelopathy, cervical; MD Kt Cervicalgia after 07/01/2018 Social History Tobacco Use Types Packs/Day Years [...] six or more drinks on one occasion? No t asked Sex Assigned at Date Recorded Not on file Job Start Date Occupation Industry Not on file Not on file Not on file Travel History Travel Start Travel End No recent travel history available. Last Filed Vital Signs Vital Sign Reading Time Taken Comments Blood Pressure 113/77 11/13/2018 10:45 AM CDT Pulse 74 11/13/2018 10:45 AM CDT Temperature 36.6 C (97.9 F) 08/01/2018 8:18 AM CDT Respiratory Rate 16 08/01/2018 8:18 AM CDT Oxygen Saturation 98% 08/01/2018 8:18 AM CDT Inhaled Oxygen Concentration - - Weight 79.8 kg (176 lb) 11/13/2018 10:45 AM CDT Height 154.9 cm (5' 1") 11/13/2018 10:45 AM CDT Body Mass Index 33.25 11/13/2018 10:45 AM CDT Plan of Treatment Health Maintenance Due Date Last Done Comments CERVICAL CANCER SCREENING 1977 COLONOSCOPY SCREENING 2006 SHINGLES VACCINES (#1) 2006 INFLUENZA VACCINE 09/06/2019 BREAST CANCER SCREENING 05/13/2020 05/13/2018 Implants Implanted Type Area Fermentation Operator Device Shelf Model / Identifier Expiration Serial / Date Lot Justyna Clgn Mastergraft [facility] 0.75cc - [id number] Human Tissue N/A: [employer] 04/04/2022 [id number] / Implanted: Qty: 1 on 07/31/2018 by Corey Draper MD at [facility] Implants N/A SPINAL AND / BIOLOGICS [id number] Stand-Alone Interbody Cage [id number] - [id number] IPM IMPLA NT N/A: [employer] 05/06/2026 [id number] / Implanted: 07/31/2018 at [facility] (Quantity not on file) DEV ICES N/A SOFAMOR DANEK / [id number] 3.5x15mm Self-Drill Screw (2 Pack) - [id number] IPM IMPLANT N/A: [employer] 05/22/2026 [id number] / Implanted: 07/31/2018 at [facility] (Quantity not on file) DEV ICES N/A SOFAMOR DANEK / [id number] Pin Distrctn [place] 12mm Strl - [id number] Neurosurgical N/A: A ESCULAP SPINE 02/26/2023 [id number] / Implanted: 07/31/2018 at [facility] (Quantity not on file) Implants N/A / [id number] Procedures Procedure Name Priority Date/Time Associated Diagnosis Comme nts MRI BRAIN W WO Routine 11/04/2018 2:27 Cerebrovascular Result s for this CONTRAST PM CDT accident (CVA), procedure ar e in unspecified mechanism the re sults (HCC) section. ESTIMATED GFR Routine 11/04/2018 1:47 Results fo r this PM CDT procedure are i n the results section. POC CREATININE Routine 11/04/2018 1:47 Results f or this PM CDT procedure are i n the results section. XR CERVICAL SPINE Routine 11/04/2018 9:09 Cervical radiculopa thy Results for this COMPLETE W FLEX EXT AM CDT procedur e are in the results section. CT HEAD EXTERNAL Routine 10/21/2018 4:49 Results for this STUDY PM CDT procedure are i n the results section. CT HEAD EXTERNAL Routine 10/20/2018 8:25 Results for this STUDY AM CDT procedure are i n the results section. XR CERVICAL SPINE 2 Routine 09/02/2018 8:43 Cervical vertebra l Results for this OR 3 VW AM CDT fusion procedure are i n the results section. SURGICAL PATHOLOGY Routine 07/31/2018 11:53 Resul ts for this REQUEST AM CDT procedure are i n the results section. XR CERVICAL SPINE 1 Routine 07/31/2018 9:30 Resu lts for this VW AM CDT procedure are i n the results section. ANESTHESIA Routine 07/31/2018 9:17 INTUBATION AM CDT Procedure Note - Deya Garcia CRNA - 07/31/2018 9:17 AM CDT Airway Date/Time: 07/31/2018 8:12 AM Performed by: Julee Garcia CRNA Authorized by: Tenzin Wei MD Location: OR Resident/JOSE ANTONIO/AA: Julee Garcia CRNA Performed by: resident/PASSENGER RELATIONS REPRESENTATIVE/AA Preoxygenated with 100% O2: Yes C-spine Precautions Maintain ed Throughout: Yes Mask Ventilation: Assisted mask (OPA ) Final Airway Type: Endotrac heal airway Final Endotracheal Airway: ETT Cuffed: Yes Technique Used: Video laryn goscopy Insertion Site: Oral Blade type: [place] scope. Laryngoscope Blade/Videolary ngoscope Blade Size: 3 ETT Size (mm): 7.0 Cuff at minimum occlusion pr essure: Yes Measured from: Lips ETT to Lips (cm): 22 Placement Verified by: CO2 d etection Laryngoscopic view: Grade I - full view of glottis Number of Attempts at Approa ch: 1 Preoxygenation >3 min Eyes taped at LOC Easy, gentle mask ventilatio n Easy, atraumatic intubation using [place] scope Dentition unchanged and inta ct XR CERVICAL SPINE Routine 07/31/2018 9:09 AM Res ults for this 1 VW CDT procedure are i n the results section. XR CERVICAL SPINE Routine 07/31/2018 9:09 AM Res ults for this 1 VW CDT procedure are i n the results section. DISCECTOMY, 07/31/2018 7:58 AM Cervical spondylosis CERVICAL, WITH CDT with myelopathy FUSION, ANTERIOR APPROACH Case Notes SUPINE POSITION, MICROSCOPE, [employer] STAND ALONE CAGE Special Needs SUPINE POSITION, MICROSCOPE, [employer] STAND ALONE CAGE ESTIMATED GFR Routine 07/04/2018 12:12 PM Results for this CDT procedure are i n the results section. BASIC METABOLIC Routine 07/04/2018 12:12 PM Preop testing Resu lts for this PANEL CDT procedure are i n the results section. HC COMPLETE BLD Routine 07/04/2018 12:12 PM Preop testing Resu lts for this COUNT W/AUTO DIFF CDT procedure are in the results section. MRI CERVICAL SPINE Routine 07/04/2018 9:57 AM HNP (herniated Results for this WO CONTRAST CDT nucleus pulposus) procedure are in with myelopathy, the results cervical section. Cervicalgia after 07/01/2018 Results MRI Brain W Wo Contrast (11/04/2018 2:27 PM CDT) Specimen Narrative Performed At EXAMINATION: MRI BRAIN W WO CONTRAST [facility] COMPARISON: None CLINICAL HISTORY I63.9 Cerebral infarcti on unspecified, stroke. TECHNIQUE: Multiplanar multisequence examination was p erformed with and without contrast FINDINGS: There is an acute to subacute hemorrhage in the left c audate nucleus head without side effects, measuring 11 x 20 mm. There is minimal surrounding enhancement. There is suspicion of minimal intraventricular hemorrh age within the left lateral ventricle. There is no mass effect or ventricular c ompression or midline shift. The ventricles and sulci are normal. There is very minimal T2 signal abnormality in the yesenia p periventricular white matter. There is no other abnormal enhancement within the brai n parenchyma or the leptomeninges. IMPRESSION: Left caudate head parenchymal hemorrhage with slight s urrounding enhancement, consistent with acute to subacute hematom a likely hypertensive in nature. Further follow-up is recommend ed to assess for complete resolution of the hemorrhage an d resolution of the enhancement. Minimal intraventricular hemorrhage. No significant mass effect or hydrocepha cara. [id number] Procedure Note Hm Interface, Radiology Results Incoming - 11/04/2018 2:57 PM CDT EXAMINATION: MRI BRAIN W WO CONTRAST COMPARISON: None CLINICAL HISTORY I63.9 Cerebral infarcti on unspecified, stroke. TECHNIQUE: Multiplanar multisequence exa mination was performed with and without contrast FINDINGS: There is an acute to subacute hemorrhage in the left caudate nucleus head without side effects, measuring 11 x 20 mm. There is minimal surrounding enhancement. There is suspicion of minimal intraventr icular hemorrhage within the left lateral ventricle. There is no mass effect or ventricular c ompression or midline shift. The ventricles and sulci are normal. There is very minimal T2 signal abnormal ity in the deep periventricular white matter. There is no other abnormal enhancement w ithin the brain parenchyma or the leptomeninges. IMPRESSION: Left caudate head parenchymal hemorrhage with slight surrounding enhancement, consistent with acute to subacute hematoma likely hypertensive in nature. Further follow-up is recommended to assess for complete resolution of the hemorrhage an d resolution of the enhancement. Minimal intraventricular hemorrhage. No significant mass effect or hydrocepha cara. [id number] Performing Organization Address [facility]/Zipcode Phone Number [facility] [address] [place] [phone] Estimated GFR (11/04/2018 1:47 PM CDT)Only the most recent of2 resultswithin the time period is included. Estimated GFR 48 (A) mL/min/1.73 [facility] Comment: m2 HOSPITAL Catergory Units Interpretation G1 >=90 Normal or high G2 60-89 Mildly decreased G3a 45-59 Mildly to moderately decreas ed G3b 30-44 Moderately to severely decre ased G4 15-29 Severely decreased G5 <15 Kidney failure The eGFR was calculated using the Chronic Kidney Disea se Epidemiology Collaboration (CKD-EPI) equation. Interpretation is based on recommendations of the National Kidney Foundation-Kidney Disease Outcomes Fausto lity Initiative (NKF-KDOQI) published in 2014. Specimen Blood Performing Organization Address [facility] Phone Number [facility] DEPARTMENT OF PATHOLOGY AND [address] [place] [address] [address] POC creatinine (11/04/2018 1:47 PM CDT) POC creatinine 1.2 (H) 0.5 - 0.9 [facility] Comment: mg/dl HOSPITAL Meter ID: [id number] Amalgamator: Jennifer Cuba Specimen Blood Performing Organization Address [facility] Cent[facility]ode Phone Number [facility] DEPARTMENT OF PATHOLOGY AND [address] [place], [place] [phone] [address] [address] XR Cervical Spine Complete w flex/ext (11/04/2018 9:09 AM CDT) Specimen Narrative Performed At EXAMINATION: XR CERVICAL SPINE COMPLETE W FLEX EXT [facility] CLINICAL HISTORY: M54.12 Radiculopathy cervical region, radiculopathy COMPARISON: 09/02/2018. IMPRESSION: 7 views of the cervical spine including dynamic latera l radiograph's are interpreted. Again noted is ACDF at C3-4 with endplate screws. No h ardware failure or loosening is seen. Moderate disc degenerative changes are noted at C6-7 a re similar to comparison study. Mild cervical spondylo sis is otherwise seen. There is slight grade 1 anterolisthesis of C7 relative to T1 that does not change on dynamic imaging. [id number] Procedure Note Interface, Radiology Results Incoming - 11/04/2018 9:15 AM CDT EXAMINATION: XR CERVICAL SPINE COMPLETE W FLEX EXT CLINICAL HISTORY: M54.12 Radiculopathy cervical region, radiculopathy COMPARISON: 09/02/2018. IMPRESSION: 7 views of the cervical spine including dynamic lateral radiograph's are interpreted. Again noted is ACDF at C3-4 with endplat e screws. No hardware failure or loosening is seen. Moderate disc degenerative changes are n oted at C6-7 are similar to comparison study. Mild cervical spondylosis is otherwise seen. There is slight grade 1 anterolisthesis of C7 relative to T1 that does not change on dynamic imaging. [id number] Performing Organization Address City/[facility] Cent[facility]ode Phone Number [facility] [address] [place] [address] CT Head External Study (10/21/2018 4:49 PM CDT)Only the most recent of2 results within the time period is included. Specimen Narrative Performed At This exam was not acquired at a [facility] facility and has not been [facility] interpreted by a [facility] Provider. T he exam was imported into our imaging system for comparisons purposes. Performing Organization Address City/[facility] Centercode Phone Number [facility] [address] [place] [address] XR Cervical Spine 2 Or 3 Vw (09/02/2018 8:43 AM CDT) Specimen Narrative Performed At EXAMINATION: XR CERVICAL SPINE 2 OR 3 VW [facility] CLINICAL HISTORY: M43.22 Fusion of spine cervical re gion, C-spine fusion follow up COMPARISON: None IMPRESSION: 3 views of the cervical spine are interp reted. ACDF is noted at C3-4 with endplate scre ws. No loosening is seen. Moderate disc degenerative changes are noted at C6-7 a nd to a lesser extent at C4-5 and C5-6. Mild disc degenerative change s are noted at C2-3. Alignment is preserved. [id number] Procedure Note Interface, Radiology Results Incoming - 09/02/2018 8:48 AM CDT EXAMINATION: XR CERVICAL SPINE 2 OR 3 VW CLINICAL HISTORY: M43.22 Fusion of spine cervical region, C-spine fusion follow up COMPARISON: None IMPRESSION: 3 views of the cervical spine are interp reted. ACDF is noted at C3-4 with endplate scre ws. No loosening is seen. Moderate disc degenerative changes are n oted at C6-7 and to a lesser extent at C4-5 and C5-6. Mild disc degenerative changes are noted at C2-3. Alignment is preserved. [id number] Performing Organization Address City/State/Zipcode Phone Number [facility] [address] [place] [address] Surgical pathology request (07/31/2018 11:53 AM CDT) [facility] DEPARTMENT OF PATHOLOGY AND GENOMIC MEDICINE Surgical pathology See link below [facility] DEPARTMENT OF report for PDF Lab PATHOLOGY AND Report GENOMIC MEDICINE Result status This is Final [facility] DEPARTMENT OF Report for PATHOLOGY AND [id number] GENOMIC MEDICINE Specimen Performing Organization Address City/[facility] Centercode Phone Number [facility] DEPARTMENT OF PATHOLOGY AND [address] [place] [phone] GENOMIC MEDICINE XR Cervical Spine 1 Vw (07/31/2018 9:30 AM CDT)Only the most recent of3 results within the time period is included. Specimen Narrative Performed At EXAMINATION: XR CERVICAL SPINE 1 VW [facility] CLINICAL HISTORY: Cervical region neck p ain and radiculopathy COMPARISON: Intraoperative x-ray from earlier today FINDINGS: There is anterior fusion from C3-C4. There i s good alignment. There are degenerative changes in the cervical spine. There is a tube within the oropharynx extending downwards. There are m ultiple radiographic wires and leads. IMPRESSION: Lateral portable crosstable intraoperative radiograph of the cervical spine for localization during cervical s pine surgery. [facility]-[id number] Procedure Note Interface, Radiology Results Incoming - 07/31/2018 10:44 AM CDT EXAMINATION: XR CERVICAL SPINE 1 VW CLINICAL HISTORY: Cervical region neck p ain and radiculopathy COMPARISON: Intraoperative x-ray from e mee today FINDINGS: There is anterior fusion from C3-C4. There is good alignment. There are degenerative changes in the cervical spine. There is a tube within the oropharynx extending downwards. There are multiple radiographic wires and leads. IMPRESSION: Lateral portable crosstable intraoperati ve radiograph of the cervical spine for localization during cervical spine surgery. [facility]-[id number] Performing Organization Address City/State/Zipcode Phone Number [facility] [address] [place] [address] CBC with platelet and differential (07/04/2018 12:12 PM CDT) WBC 6.74 4.50 - 11.00 [facility] k/uL HOSPITAL RBC 4.56 4.20 - 5.50 [facility] m/uL HOSPITAL HGB 14.4 12.0 - 16.0 [facility] g/dL [facility] HCT 43.3 37.0 - 47.0 % [facility] MCV 95.0 82.0 - 100.0 [facility] MCH 31.6 27.0 - 34.0 pg [facility] MCHC 33.3 31.0 - 37.0 [facility] g/dL [facility] RDW - SD 44.9 37.0 - 55.0 fL [facility] MPV 11.0 8.8 - 13.2 fL [facility] Platelet count 244 150 - 400 k/uL [facility] Nucleated RBC 0.00 /100 WBC [facility] Neutrophils 60.5 39.0 - 69.0 % [facility] Lymphocytes 27.4 25.0 - 45.0 % [facility] Monocytes 8.8 0.0 - 10.0 % [facility] Eosinophils 2.2 0.0 - 5.0 % [facility] Basophils 0.7 0.0 - 1.0 % [facility] Immature granulocytes 0.4Comment: 0.0 - 1.0 % [facility] "Immature [facility] granulocytes" (promyelocytes , myelocytes, metamyelocytes ) Specimen Blood Performing Organization Address City/State/Zipcode Phone Number [facility] DEPARTMENT OF PATHOLOGY AND [address] [place], [place] [address] GENOMIC MEDICINE [facility] [address] [place] [address] Basic metabolic panel (07/04/2018 12:12 PM CDT) Pathologist Sig nature Sodium 143 135 - 148 mEq/L [facility] Potassium 3.8 3.5 - 5.0 mEq/L [facility] Chloride 100 98 - 112 mEq/L [facility] CO2 28 24 - 31 mEq/L [facility] Anion gap 15@ANIO 7 - 15 mEq/L [facility] BUN 13 8 - 23 mg/dL [facility] Creatinine 1.01 (H) 0.50 - 0.90 mg/dL [facility] Glucose 112 (H) 65 - 99 mg/dL [facility] Calcium 9.5 8.8 - 10.2 mg/dL [facility] Specimen Plasma specimen Performing Organization Address City/State/Zipcode Phone Number [facility] DEPARTMENT OF PATHOLOGY AND [address] [place], [place] [address] GENOMIC MEDICINE [facility] [address] [place] [address] MRI Cervical Spine Wo Contrast (07/04/2018 9:57 AM CDT) Specimen Narrative Performed At This result has an attachment that is no t available. EXAMINATION: MRI CERVICAL SPINE WO CONTRAST [facility] CLINICAL HISTORY: M50.00 Cervical disc d isorder with myelopathy unspecified cervical region, M54.2 Cervicalgia, HNP (herniated nucleus pulposus) with myelopathy cervical COMPARISON: MRI C-spine 03/21/2018. TECHNIQUE: Multiplanar multisequence non contrast enhanced examination was performed of the cervical spine. FINDINGS: No significant interval change appearing since the prior MRI from 03/21/2018.The alignment of cervical spine is within normal limits.No subluxation. STIR hyperintense vertebral hemangiomas are noted with in the T1 and T2 vertebral bodies. No suspicious osseous lesion. Vertebral body heights a re preserved. The cervicomedullary junction is normal in appearance. No spinal cord signal abnormality. No prevertebral edema identified. Right thyroid nodule measuring up to 1.9 x 1.4 cm noted within the right tracheoesophageal groove, image 28 of series 6. No cervical lymphadenopathy identified. Axial images through the disc spaces demonstrate the f ollowing: C1-C2: No significant spinal canal stenosis. C2-C3: No significant posterior disc dis ease, spinal canal, subarticular zone, or neural foraminal stenosis. C3-C4: Disc desiccation with mild broad- based disc protrusion which indents the ventral thecal sac and results in mild to moderate central canal stenosis, including contact of the ventral spinal cord, image 14 of series 5. Neural foramina are patent bilaterally. C4-C5: Mild to moderate left neural fora estevan stenosis secondary to degenerative uncovertebral hypertrophy, image 17 of series 5. No significant posterior disc disease, spinal canal, subarticular zone, or right neural foraminal stenosis. C5-C6: Disc desiccation with moderate in tervertebral disc height loss and circumferential disc bulge which indents the ventral thecal sac and results in moderate bilateral neural frontal stenosis when combined with facet arthrosis. Central canal is mildly narrowed. C6-C7: Moderate to marked left neural fo raminal stenosis secondary to degenerative uncovertebral and facet arthrosis. No significant posterior disc disease, spinal canal, subarticular zone, or right neural foraminal stenosis. C7-T1: No significant posterior disc dis ease, spinal canal, subarticular zone, or neural foraminal stenosis. IMPRESSION: 1. Mild to moderate central canal sten osis at C3-C4 secondary to broad-based disc protrusion, including contact of the ventral spinal cord. No abnormal cord signal. 2. Right tracheal esophageal groove th yroid nodule measuring up to 1.9 cm, which merits dedicated thyroid ultrasound and FNA/biopsy based on size criteria. [id number] Procedure Note Hm Interface, Radiology Results Incoming - 07/04/2018 10:27 AM CDT EXAMINATION: MRI CERVICAL SPINE WO CONTRAST CLINICAL HISTORY: M50.00 Cervical disc d isorder with myelopathy unspecified cervical region, M54.2 Cervicalgia, HNP (herniated nucleus pulposus) with myelopathy cervical COMPARISON: MRI C-spine 03/21/2018. TECHNIQUE: Multiplanar multisequence non contrast enhanced examination was performed of the cervical spine. FINDINGS: No significant interval change appearing since the prior MRI from 03/21/2018.The alignment of cervical spine is within normal limits.No subluxation. STIR hyperintense vertebral hemangiomas are noted within the T1 and T2 vertebral bodies. No suspiciou s osseous lesion. Vertebral body heights a re preserved. The cervicomedullary junction is normal in appearance. No spinal cord signal abnormality. No prevertebral edema identified. Right thyroid nodule measuring up to 1.9 x 1.4 cm noted within the right tracheoesophageal groove, image 28 of series 6. No cervical lymphadenopathy identified. Axial images through the disc spaces dem onstrate the following: C1-C2: No significant spinal canal steno sis. C2-C3: No significant posterior disc dis ease, spinal canal, subarticular zone, or neural foraminal stenosis. C3-C4: Disc desiccation with mild broad- based disc protrusion which indents the ventral thecal sac and results in mild to moderate central canal stenosis, including contact of the ventral spinal cord, image 14 of series 5. Neural foramina are patent bilaterally. C4-C5: Mild to moderate left neural fora estevan stenosis secondary to degenerative uncovertebral hypertrophy, image 17 of series 5. No significant posterior disc disease, spinal canal, subarticular zone, or right neural foraminal stenosis. C5-C6: Disc desiccation with moderate in tervertebral disc height loss and circumferential disc bulge which indents the ventral thecal sac and results in moderate bilateral neural frontal stenosis when combined with facet arthrosis. Central canal is mildly narrowed. C6-C7: Moderate to marked left neural fo raminal stenosis secondary to degenerative uncovertebral and facet arthrosis. No significant posterior disc disease, spinal canal, subarticular zone, or right neural foraminal stenosis. C7-T1: No significant posterior disc dis ease, spinal canal, subarticular zone, or neural foraminal stenosis. IMPRESSION: 1. 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 No abnormal cord signal. 2. 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
--- OUTSIDE RECORDS SUMMARY | 2019-07-02 10:30 | XMS REPORT | Clinical Summary ---
:1955 Author Organization [facility] Address [address] [place] [address] Care Team Providers Name Role Phone Unavailable Primary Care Provider Unavailable Allergies Active Allergy Reactions Severity Noted Date Comments [place] Hives High 10/20/2018 Medications Medication Sig Dispensed Refills Start Date End Date Status escitalopram Take 10 mg by 0 Act jose a oxalate (LEXAPRO) mouth daily. 10 MG tablet trospium Take 20 mg by 0 Active (SANCTURA) 20 mg mouth 2 (two) tablet times daily. telmisartan-hydroc Take 1 tablet 30 tablet 2 10/22/2018 Active hlorothiazide by mouth daily. 0 (MICARDIS HCT) 80-12.5 mg per tablet gabapentin Take 1 capsule 120 capsule 0 10/22/2018 A ctive (NEURONTIN) 100 MG three times capsule daily. You can increase to 2 capsules three times daily per discharge instructions.. pregabalin Take 75 mg by 0 Disco ntinued (LYRICA) 75 MG mouth daily. 9 capsule telmisartan-hydroc Take 1 tablet 0 01 Discontinued hlorothiazide by mouth daily. 9 (MICARDIS HCT) 40-12.5 mg per tablet gabapentin Take 1 capsule 120 capsule 0 10/22/2018 D iscontinued (NEURONTIN) 100 MG (100 mg total) 9 capsule by mouth 3 (three) times daily. 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 Monthly or less 10/20/2018 How many drinks containing alcohol do you have on a 1 or 2 10/20/2018 typical day when you are drinking? How often do you have six or more drinks on one Never 10/20/2018 occasion? Sex Assigned at Date Recorded Not on file Job Start Date Occupation Industry Not on file Not on file Not on file Travel History Travel Start Travel End No recent travel history available. Last Filed Vital Signs Vital Sign Reading Time Taken Blood Pressure 109/71 10/22/2018 1:00 PM CDT Pulse 66 10/22/2018 1:00 PM CDT Temperature 36.9 C (98.4 F) 10/22/2018 12:00 PM CDT Respiratory Rate 13 10/22/2018 1:00 PM CDT Oxygen Saturation 97% 10/22/2018 1:00 PM CDT Inhaled Oxygen Concentration - - Weight 81.4 kg (179 lb 7.3 oz) 10/20/2018 1:15 AM CDT Height 154.9 cm (5' 1") 10/20/2018 1:15 AM CDT Body Mass Index 33.91 10/20/2018 1:15 AM CDT Plan of Treatment Not on file Procedures Procedure Name Priority Date/Time Associated Comments Diagnosis REPORT OF PROCEDURE - 10/25/2018 12:10 ENDOSCOPY SCAN PM CDT RHYTHM STRIP - SCAN 10/23/2018 12:20 PM CDT POCT-GLUCOSE METER Routine 10/22/2018 11:50 Resul ts for this AM CDT procedure are i n the results section. POCT-GLUCOSE METER Routine 10/22/2018 5:44 Resul ts for this AM CDT procedure are i n the results section. PHOSPHORUS Routine 10/22/2018 4:24 Results for this AM CDT procedure are i n the results section. MAGNESIUM Routine 10/22/2018 4:24 Results for this AM CDT procedure are i n the results section. BASIC METABOLIC PANEL Routine 10/22/2018 4:24 Re sults for this (7) AM CDT procedure are i n the results section. CBC (HEMOGRAM ONLY) Routine 10/22/2018 4:24 Resu lts for this AM CDT procedure are i n the results section. POCT-GLUCOSE METER Routine 10/21/2018 11:53 Resul ts for this PM CDT procedure are i n the results section. POCT-GLUCOSE METER Routine 10/21/2018 6:40 Resul ts for this PM CDT procedure are i n the results section. POCT-GLUCOSE METER Routine 10/21/2018 11:34 Resul ts for this AM CDT procedure are i n the results section. RAPID DRUG SCREEN, Routine 10/21/2018 8:52 Resul ts for this URINE AM CDT procedure are i n the results section. POCT-GLUCOSE METER Routine 10/21/2018 6:09 Resul ts for this AM CDT procedure are i n the results section. CT BRAIN WITHOUT IV Routine 10/21/2018 4:55 Resu lts for this CONTRAST AM CDT procedure are i n the results section. PHOSPHORUS Routine 10/21/2018 3:26 Results for this AM CDT procedure are i n the results section. MAGNESIUM Routine 10/21/2018 3:26 Results for this AM CDT procedure are i n the results section. BASIC METABOLIC PANEL Routine 10/21/2018 3:26 Re sults for this (7) AM CDT procedure are i n the results section. POCT-GLUCOSE METER Routine 10/21/2018 1:13 Resul ts for this AM CDT procedure are i n the results section. POCT-GLUCOSE METER Routine 10/20/2018 8:01 Resul ts for this PM CDT procedure are i n the results section. POTASSIUM Routine 10/20/2018 6:03 Results for this PM CDT procedure are i n the results section. POCT-GLUCOSE METER Routine 10/20/2018 11:50 Resul ts for this AM CDT procedure are i n the results section. APTT Routine 10/20/2018 9:08 Results for this AM CDT procedure are i n the results section. PROTHROMBIN TIME/INR Routine 10/20/2018 9:08 Res ults for this AM CDT procedure are i n the results section. CTA BRAIN Routine 10/20/2018 8:46 Results for this AM CDT procedure are i n the results section. CBC W/PLT COUNT & Routine 10/20/2018 4:15 Result s for this AUTO DIFFERENTIAL AM CDT procedure are in the results section. HEPATIC FUNCTION Add-On 10/20/2018 4:15 Results for this PANEL AM CDT procedure are i n the results section. BASIC METABOLIC PANEL Routine 10/20/2018 4:15 Re sults for this (7) AM CDT procedure are i n the results section. CBC W/PLT COUNT & Routine 10/20/2018 4:15 Result s for this AUTO DIFFERENTIAL AM CDT procedure are in the results section. POCT-GLUCOSE METER Routine 10/20/2018 2:23 Resul ts for this AM CDT procedure are i n the results section. after 07/01/2018 Results EKG-SCANNED (10/25/2018 12:10 PM CDT) Narrative Performed At This result has an attachment that is no t available. RHYTHM STRIP - SCAN (10/23/2018 12:20 PM CDT) Narrative Performed At This result has an attachment that is no t available. POC-Glucose meter (10/22/2018 11:50 AM CDT)Only the most recent of10 results within the time period is included. POC-Glucose Meter 105Comment: TESTED AT 70 - 110 mg/dL [facility] [id number] [facility] [id number] Specimen Blood Performing Organization Address City/State/Zipcode Phone Number [address] [address] CENTER CBC (Hemogram only) (10/22/2018 4:24 AM CDT) WBC 10.5 3.5 - 10.5 K/L [facility] RBC 4.59 3.93 - 5.22 M/L [facility] Hemoglobin 14.5 11.2 - 15.7 GM/DL [facility] Hematocrit 42.5 34.1 - 44.9 % [facility] MCV 92.6 79.4 - 94.8 fL [facility] MCH 31.6 25.6 - 32.2 pg [facility] MCHC 34.1 32.2 - 35.5 GM/DL [facility] RDW 13.4 11.7 - 14.4 % [facility] Platelets 266 150 - 450 K/CU MM [facility] MPV 10.2 9.4 - 12.3 fL [facility] nRBC 0 0 - 0 /100 WBC [facility] Specimen Blood Performing Organization Address City/State/Zipcode Phone Number [address] [address] CENTER Phosphorus (10/22/2018 4:24 AM CDT)Only the most recent of2 resultswithin the time period is included. Phosphorus 3.0 2.3 - 4.7 mg/dL [facility] Specimen Blood Performing Organization Address City/[facility]/Zipcode Phone Number [address] [address] CENTER Magnesium (10/22/2018 4:24 AM CDT)Only the most recent of2 resultswithin the time period is included. Magnesium 2.2 1.6 - 2.6 mg/dL [facility] Specimen Blood Performing Organization Address City/[facility] Phone Number [address] [address] CENTER Basic Metabolic Panel (10/22/2018 4:24 AM CDT)Only the most recent of3 results within the time period is included. Sodium 135 (L) 136 - 145 meq/L [facility] Potassium 3.7 3.5 - 5.1 meq/L [facility] Chloride 99 98 - 107 meq/L [facility] CO2 27 22 - 29 meq/L [facility] BUN 14 7 - 21 mg/dL [facility] Creatinine 0.88 0.57 - 1.25 mg/dL [facility] Glucose 113 (H) 70 - 105 mg/dL [facility] Calcium 9.0 8.4 - 10.2 mg/dL [facility] EGFR 65Comment: ESTIMATED GFR IS mL/min/1.73 sq m [facility] NOT ACCURATE CREATININE MN DICAL PALMER CLEARANCE IN PREDICTING GLOMERULAR FILTRATION RATE. ESTIMATED GFR IS NOT APPLICABLE FOR DIALYSIS PATIENTS. Specimen Blood Performing Organization Address City/[facility]/Zipcode Phone Number [facility] [address] [place] [address] CENTER Rapid drug screen, urine (10/21/2018 8:52 AM CDT) Barbiturate Screen Negative Negative [facility] Benzodiazepine Screen Negative Negative [facility] Cocaine (Metab.) Screen Negative Negative [facility] Methadone Screen Negative Negative [facility] Opiate Screen Positive (A) Negative [facility] Cannabinoid Screen Negative Negative [facility] Amph/Methamph Screen Negative Negative [facility] Phencyclidine Screen Negative Negative [facility] Specimen Urine Narrative Performed At [facility] CONC. Cocaine 300 ng/mL Dpcrsrqrcpd70 ng /mL Mcuykztlghgzkv655 ng/mL Barbiturate 200 ng/m L Mhptfkioiquwo77 ng/m L Dzukvv270 ng/mL Methadone 300 ng /mL Amphetamine/ 1000 ng/mL Methamphetamine This assay provides an unconfirmed qualitative test result for the clinical management of patients in emergency situations. Chain of custody not maintained. Some pasw-mft-wemnvne medications, as well as adulterants, may cause inaccurate results. Clinical correlation should be applied. A more comprehensive drug screen or confirmation of a detected drug may be performed upon request. Performing Organization Address City/[facility]/Zipcode Phone Number [facility] [address] [place] [address] brain without IV contrast (10/21/2018 4:55 AM CDT) Specimen Narrative Performed At FINAL REPORT [employer] CT, BRAIN, WITHOUT CONTRAST CLINICAL INDICATION:Cerebral hemorrh age suspected COMPARISON: 10/20/2018 TECHNIQUE:Noncontrast axial CT imagi ng of the brain and skull. DOSE REDUCTION: Dose modulation, iterati ve reconstruction, and/or weight-based adjustment of the mA/kV was utilized to reduce the radiation dose to as low as reasonably a chievable. FINDINGS: No significant interval change in left b gabriella ganglia hemorrhage extending to the ventricular system with acute blood products layering within the lateral ventricles. No hydrocephalus. Unchanged background of mild chronic microvascular ischemic changes of the periventricular and subcortical white ma tter are present. Orbits are within normal limits. No obstructive paranasal sinus disease. IMPRESSION: No significant interval change in left b gabriella ganglia hemorrhage extending to the ventricular system with acute blood products layering within the lateral ventricles. No hydrocephalus. If there is persistent clinical concern for intracranial pathology, MR examination is recommended for furthe r characterization. Signed: Falguni Cohen MD Report Verified Date/Time:10/21/2018 07:32:00 Reading Location: [address] Procedure Note Interface, External Ris In - 10/21/2018 7:34 AM CDT FINAL REPORT CT, BRAIN, WITHOUT CONTRAST CLINICAL INDICATION: Cerebral hemorrhag e suspected COMPARISON: 10/20/2018 TECHNIQUE: Noncontrast axial CT imaging of the brain and skull. DOSE REDUCTION: Dose modulation, iterati ve reconstruction, and/or weight-based adjustment of the mA/kV was utilized to reduce the radiation dose to as low as reasonably a chievable. FINDINGS: No significant interval change in left b gabriella ganglia hemorrhage extending to the ventricular system with acute blood products layering within the lateral ventricles. No hydrocephalus. Unchanged background of mild chronic microvascular ischemic changes of the periventricular and subcortical white ma tter are present. Orbits are within normal limits. No obstructive paranasal sinus disease. IMPRESSION: No significant interval change in left b gabriella ganglia hemorrhage extending to the ventricular system with acute blood products layering within the lateral ventricles. No hydrocephalus. If there is persistent clinical concern for intracranial pathology, MR examination is recommended for furthe r characterization. Signed: Falguni Cohen MD Report Verified Date/Time: 10/21/2018 0 7:32:00 Reading Location: [facility] [id number] [facility] Performing Organization Address City/[facility] Services[facility] Phone Number [facility] Potassium (10/20/2018 6:03 PM CDT) Potassium 3.9 3.5 - 5.1 meq/L [facility] Specimen Blood Performing Organization Address [facility] Services[facility] Phone Number [address] [address] [place] aPTT (10/20/2018 9:08 AM CDT) PTT 31.0 22.5 - 36.0 seconds [facility] Specimen Blood Performing Organization Address [facility] Phone Number [address] [address] [place] Prothrombin time/INR (10/20/2018 9:08 AM CDT) Protime 14.8 (H) 11.9 - 14.2 seconds [facility] INR 1.2 <=5.9 [facility] Specimen Blood Narrative Performed At Effective 07/03/2018: PT Reference Range [facility] Change New: 11.9-14.2Previous: 11.7-14.7 RECOMMENDED COUMADIN/WARFARIN INR THERAPY RANGES STANDARD DOSE: 2.0-3.0Includes: PROPHYLAXIS for venous thrombosis, systemic embolization; TREATMENT for venous thrombosis and/or pulmonary embolus. HIGH RISK: Target INR is 2.5-3.5 for patients wiht mechanical heart valves. Performing Organization Address [facility] Services[facility] Phone Number [address]/CTA brain (10/20/2018 8:46 AM CDT) Specimen Narrative Performed At FINAL REPORT [facility] CLINICAL HISTORY: Neuro deficit, acute, stroke suspected Intracranial hemorrhage TECHNIQUE: Initially, noncontrast head C T images were performed. Contiguous contrast-enhanced axial image s through the head with coronal and sagittal reformations to ass ess the arterial circulation. 3-D reconstructions were performed using a volume rendered technique separately on a workstation. This exam w as performed according to the departmental dose optimization program w hich includes automated exposure control, adjustment of the mA a nd/or kV according to the patient size, and/or use of an iterative reconstruction technique. COMPARISON: None FINDINGS: There is a parenchymal hematoma centered within the left caudate head and periventricular white matter, with e xtension into the left lateral ventricle. There is a minimal ri ghtward midline shift. No hydrocephalus. The skull is intact. No intracranial aneurysm, focal stenosis , or proximal branch vessel occlusion. No vascular malformation in t he region of parenchymal hemorrhage. The major intradural venous sinuses are patent. IMPRESSION: 1.Parenchymal hemorrhage centered within the left caudate head and periventricular white matter, with exten jasmine into the left lateral ventricle. Minimal rightward midline leeanna ft. No hydrocephalus. Per chart review, the clinical team is aware of this finding. No outside images are available for comparison. 2.No underlying aneurysm or vascular mal formation. Signed: Alda Vieira MD Report Verified Date/Time:10/20/2018 17:30:34 Procedure Note Interface, External Ris In - 10/20/2018 5:33 PM CDT FINAL REPORT CLINICAL HISTORY: Neuro deficit, acute, stroke suspected Intracranial hemorrhage TECHNIQUE: Initially, noncontrast head C T images were performed. Contiguous contrast-enhanced axial image s through the head with coronal and sagittal reformations to ass ess the arterial circulation. 3-D reconstructions were performed using a volume rendered technique separately on a workstation. This exam w as performed according to the departmental dose optimization program w hich includes automated exposure control, adjustment of the mA a nd/or kV according to the patient size, and/or use of an iterative reconstruction technique. COMPARISON: None FINDINGS: There is a parenchymal hematoma centered within the left caudate head and periventricular white matter, with e xtension into the left lateral ventricle. There is a minimal ri ghtward midline shift. No hydrocephalus. The skull is intact. No intracranial aneurysm, focal stenosis , or proximal branch vessel occlusion. No vascular malformation in t he region of parenchymal hemorrhage. The major intradural venous sinuses are patent. IMPRESSION: 1.Parenchymal hemorrhage centered within the left caudate head and periventricular white matter, with exten jasmine into the left lateral ventricle. Minimal rightward midline leeanna ft. No hydrocephalus. Per chart review, the clinical team is aware of this finding. No outside images are available for comparison. 2.No underlying aneurysm or vascular mal formation. Signed: Alda Vieira MD Report Verified Date/Time: 10/20/2018 1 7:30:34 Performing Organization Address City/State/Zipcode Phone Number [facility] CBC with platelet count + automated diff (10/20/2018 4:15 AM CDT) WBC 11.9 (H) 3.5 - 10.5 K/L [facility] RBC 4.51 3.93 - 5.22 M/L [facility] Hemoglobin 14.1 11.2 - 15.7 GM/DL [facility] Hematocrit 41.4 34.1 - 44.9 % [facility] MCV 91.8 79.4 - 94.8 fL [facility] MCH 31.3 25.6 - 32.2 pg [facility] MCHC 34.1 32.2 - 35.5 GM/DL [facility] RDW 13.4 11.7 - 14.4 % [facility] Platelets 281 150 - 450 K/CU MM [facility] MPV 10.1 9.4 - 12.3 fL [facility] nRBC 0 0 - 0 /100 WBC [facility] % Neutros 78 % [facility] % Lymphs 13 % [facility] % Monos 8 % [facility] % Eos 0 % [facility] % Baso 0 % [facility] # Neutros 9.36 (H) 1.56 - 6.13 K/L [facility] # Lymphs 1.55 1.18 - 3.74 K/L [facility] # Monos 0.91 (H) 0.24 - 0.36 K/L [facility] # Eos 0.01 (L) 0.04 - 0.36 K/L [facility] # Baso 0.04 0.01 - 0.08 K/L [facility] Immature Granulocytes-Relative 1 0 - 1 % C [facility] Specimen Blood Performing Organization Address City/State/Zipcode Phone Number [facility] [address] [place] [address] CENTER Hepatic function panel (10/20/2018 4:15 AM CDT) Protein, Total 6.9 6.0 - 8.3 gm/dL [facility] Albumin 3.8 3.5 - 5.0 g/dL [facility] Total Bilirubin 1.0 0.2 - 1.2 mg/dL [facility] Bilirubin, Direct 0.4 0.1 - 0.5 mg/dL [facility] Alkaline Phosphatase 70 40 - 150 U/L [facility] AST 22 5 - 34 U/L [facility] ALT 19 6 - 55 U/L [facility] Specimen Blood Performing Organization Address City/State/Zipcode Phone Number [facility] [address] [place] [address] CENTER after 07/01/2018 Insurance Payer Benefit Plan / Subscriber ID Type Phone Address Group BLUE CROSS/BLUE BCBS OS xxxxxxxxxxxx PPO [phone] [id number] SHIELD POS/PPO/[place] [address] Advance Directives For more information, please contact:[facility] [place], [place] [phone] Code Status Date Activated Date Inactivated Comments Full Code 10/20/2018 7:29 AM 10/22/2018 4:34 PM This code status was determined by: Patient
--- OUTSIDE RECORDS SUMMARY | 2019-07-02 10:32 | XMS REPORT ---
:1955 Author Organization [facility] t Address [address] [place] [address] Care Team Providers Name Role Phone Veronica SCOTT Primary Care Physician Mickie SCOTT Attending Clinician Kt Draper MD Attending Clinician FATEMEH MILLER Attending Clinician Unavailable Afshan EVERETTN Attending Clinician Unavailable Eriberto SCOTT Attending Clinician Roque COLLADO Attending Clinician FATEMEH MILLER Admitting Clinician Unavailable Payers Payer Name Policy Type Policy Number Effective Date Expiration Date Mulugeta elias [id number] xxxxxxxxxxxx 2018 [place] CHOICE 00:00:00 Yarsanism PPO/FEDERAL EMPL PPOxxxxxxxxxxx 2018-Pres entPPO Problems Condition Condition Condition Status Onset Resolution Last Treating Co mments Source Name Details Category Date Date Treatment Clinician Date Cerebrovas Cerebrovas Disease Active [place] cular cular 11-04 Methodi accident accident 00:00: st 00 Follow-up Follow-up Disease Active David ston examinatio examinatio 09-02 Me thodi n n 00:00: st following following 00 surgery surgery Fixation Fixation Disease Active [place] hardware hardware 09-02 Method i in spine in spine 00:00: st 00 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 07-31 Me thodi s with s with 00:00: st myelopathy myelopathy 00 and and radiculopa radiculopa thy thy Cervicalgi Cervicalgi Disease Active [place] a a 4-18 Methodi 00:00: st 00 Partial Partial Diagnosis [facility]raumat nontraumat Christin kes - ic tear of ic tear of moria right right l rotator rotator Outpati cuff cuff ent Clinics Pain in Pain in Diagnosis [facility] - right right Memoria shoulder shoulder l Outpati ent Clinics Adhesive Adhesive Diagnosis Active [facility] capsulitis capsulitis Christin kes - of right of right Memori a shoulder shoulder l Outpati ent Clinics Allergies, Adverse Reactions, Alerts Allergy Allergy Status Severity Reaction(s) Onset Inactive Treating Comm ents Source Name Type Date Date Clinician Strawber Propensi Active Swelling [place] ty to 3-15 Methodi adverse 00:00: st reaction 00 s to drug Penicill Propensi Active Hives, [place] ins ty to Swelling -09 Methodi adverse 00:00: st reaction 00 s to drug Peniclli Adverse Active Info Not [facility] n Reaction Available [facility] strawber Adverse Active Info Not [facility] harsha Reaction Available [facility] Social History Social Habit Start Date Stop Date Quantity Comments Source History [facility] Meth odist Alcohol Std Drinks History [facility] Meth odist Alcohol Binge Sex Assigned At [facility] ethodist Alcohol intake 2018-11-13 2018-11-13 Current [facility] thodist 00:00:00 00:00:00 non-drinker of alcohol (finding) History SDOH 2018-05-22 2018-05-22 1 [place] Meth odist Alcohol Frequency 00:00:00 00:00:00 Alcohol Comment 2018-05-22 2018-05-22 rare [facility] ethodist 00:00:00 00:00:00 Smoking Status Start Date Stop Date Source Never smoker [place] Method[facility] Medications Ordered Filled Start Stop Current Ordering Indication Dosage Frequency Signature Comments Components Source Medication Medication Date Date Medication? Clinician (SIG) Name Name telmisartan 2018-02 Yes 1{tbl} QD Take 1 [place] -hydrochlor 0-09 tablet by Met kali kearns 10:47: mouth st (MICARDIS 26 daily. HCT) 40-12.5 mg per tablet escitalopra 2018-02 2019- No 10mg QD Take 10 mg Carson m (LEXAPRO) 0-09 10-09 by mouth Met hodi 10 MG 10:46: 00:[address] tablet 38 :00 gabapentin 2018- Yes 1{capsu Q.5D 1 capsule Carson (NEURONTIN) 0-04 le} 2 (two) Metho di 100 mg 00:00: times a st capsule 00 day. ibuprofen 2019- No 800mg QD Take 800 [place] (ADVIL,MOTR 6- 06-27 mg by Method i IN) 800 MG 11:00: 00:[address] tablet 14 :00 daily. pregabalin Yes 75mg QD Take 75 mg [place] (LYRICA) 75 6-27 by mouth Meth adrianna MG capsule 11:00: daily. st 11 trospium Yes 60mg QD Take 60 mg David ston chloride 6-27 by mouth Methodi (TROSPIUM 11:00: daily. st ORAL) 11 OMEPRAZOLE Yes 40mg QD Take 40 mg [place] ORAL 6- by mouth Methodi 11:00: daily. st 11 cyclobenzap Yes Take 1/2 [place] rine 6 to 1 tab Methodi (FLEXERIL) 00:00: orally 3 st 10 mg 00 times tablet daily as needed acetaminoph 2019- No 1{tbl} Q.25D Take 1-2 Carson en-codeine 6 07-07 tablets by Il guzman (TYLENOL 00:00: 23:[address] WITH 00 :00 (four) CODEINE #3) times a 300-30 mg day as per tablet needed for moderate pain for up to 10 days. ibuprofen ibuprofen Yes [place] not [facility] Micardis Micardis Yes [place] not [facility]ics Lyrica Lyrica Yes [place] not [facility] Omeprazole Omeprazole Yes [place] not [facility] Gabapentin Gabapentin Yes [place] not [facility] Telmisartan Telmisartan Yes [place] not [facility] Vital Signs Vital Name Observation Time Observation Value Comments Source Systolic blood 2018-11-13 10:45:00 113 mm[Hg] Henry[place] n Yarsanism pressure Diastolic blood 2018-11-13 10:45:00 77 mm[Hg] [place] Yarsanism pressure Heart rate 2018-11-13 10:45:00 74 /min Alli Nguyen Body height 2018-11-13 10:45:00 154.9 cm Carson Yarsanism Body weight 2018-11-13 10:45:00 79.833 kg Alli Nguyen BMI 2018-11-13 10:45:00 33.25 kg/m2 Alli Nguyen Body temperature 2018-08-01 08:18:08 36.61 Araceli [place] Yarsanism Respiratory rate 2018-08-01 08:18:08 16 /min [place] Yarsanism Oxygen saturation in 2018-08-01 08:18:08 98 /min Carson Yarsanism Arterial blood by Pulse oximetry Procedures Procedure Date / Time Performed Performing Clinician [facility] e MRI BRAIN W WO CONTRAST 2018-11-04 14:27:00 Corey Draper Yarsanism POC CREATININE 2018-11-04 13:47:00 Corey Draper Meth odist ESTIMATED GFR 2018-11-04 13:47:00 Corey Draper Meth odist XR CERVICAL SPINE 2018-11-04 09:09:19 Corey Draper Me thodist COMPLETE W FLEX EXT CT HEAD EXTERNAL STUDY 2018-10-21 16:49:[address] Yarsanism [address] HEAD EXTERNAL STUDY 2018-10-20 08:25:00 Kwaku Corado on Yarsanism XR CERVICAL SPINE 2 OR 2018-09-02 08:43:00 Corey Draper on Yarsanism 3 VW SURGICAL PATHOLOGY 2018-07-31 11:53:00 Corey Draper M ethodist REQUEST XR CERVICAL SPINE 1 VW 2018-07-31 09:30:00 Corey Draper on Yarsanism ANESTHESIA INTUBATION 2018-07-31 09:17:57 Julee Garcia n Yarsanism XR CERVICAL SPINE 1 VW 2018-07-31 09:09:59 Josiah Mota on Yarsanism XR CERVICAL SPINE 1 2018-07-31 09:09:34 Josiah oMta on Yarsanism DISCECTOMY, CERVICAL, 2018-07-31 07:58:00 Corey Draper WITH FUSION, ANTERIOR APPROACH HC COMPLETE BLD COUNT 2018-07-04 12:12:00 Corey Draper W/AUTO DIFF BASIC METABOLIC PANEL 2018-07-04 12:12:00 Deljeannine-David Lnyn stonury Yarsanism Bella ESTIMATED GFR 2018-07-04 12:12:00 Corey Draper Meth odist MRI CERVICAL SPINE WO 2018-07-04 09:57:34 Corey Draper CONTRAST Plan of Care Planned Activity Planned Date Details Comments Source Future Scheduled 2020-05-13 BREAST CANCER [facility] thodist Test 00:00:00 SCREENING [code = BREAST CANCER SCREENING] Future Scheduled 2019-09-06 INFLUENZA VACCINE [place] [facility] Test 00:00:00 [code = INFLUENZA VACCINE] Future Scheduled 2006 COLONOSCOPY SCREENING [place] [facility]ism Test 00:00:00 [code = COLONOSCOPY SCREENING] Future Scheduled 2006 SHINGLES VACCINES [place] [facility] Test 00:00:00 (#1) [code = SHINGLES VACCINES (#1)] Future Scheduled 1977 Screening for [facility] thodist Test 00:00:00 malignant neoplasm of cervix (procedure) [code = 042450442] Encounters Start End Encounter Admission Attending Care Care Encounter Source Date/Time Date/Time Type Type Clinicians Facility Department ID 2019-03-24 2019-03-24 Outpatient Lui Mace [id number] [address] 09:30[facility]00 09[facility]30[facility] Clinics 2019-01-20 2019-01-20 Outpatient Lui Mace [id number] 13:59:00 13:59:00 [facility] Clinics 2019-01-20 2019-01-20 Outpatient Lui Mace [id number] 09:30:00 09:30:00 [facility] ent Clinics 2018-11-18 2018-11-18 Outpatient Lui Poet [id number] 14:30:00 14:30:00 [facility] 2018-10-08 2018-10-08 Outpatient Lui [place] [id number] 14:00:00 14:00:00 [facility] Results Test Description Test Time Test Comments Results Result Sourc e Comments CT Head External This exam was not [facility] Study 1 acquired at a Yarsanism 01:47:32 Yarsanism facility and has not been interpreted by a Yarsanism Provider. The exam was imported into our imaging system for comparisons purposes. MRI Brain W Wo 2018-10-08 [facility] [place] [facility]56 11/04/2018 2:57 PM CDTEXAMINATION: MRI BRAIN W WO CONTRASTCOMPARISON: NoneCLINICAL HISTORY I63.9 Cerebral infarction unspecified, stroke. TECHNIQUE: Multiplanar multisequence examination was performed with and without contrastFINDINGS:Ther e is an acute to subacute hemorrhage in the left caudate nucleus head without side effects, measuring 11 x 20 mm. There is minimal surrounding enhancement.There is suspicion of minimal intraventricular hemorrhage within the left lateral ventricle.There is no mass effect or ventricular compression or midline shift.The ventricles and sulci are normal.There is very minimal T2 signal abnormality in the deep periventricular white matter.There is no other abnormal enhancement within the brain parenchyma or the leptomeninges.IMPRESS ION:Left caudate head parenchymal hemorrhage with slight surrounding enhancement, consistent with acute to subacute hematoma likely hypertensive in nature. Further follow-up is recommended to assess for complete resolution of the hemorrhage and resolution of the enhancement.Minimal intraventricular hemorrhage.No significant mass effect or hydrocephalus.[id number] POC creatinine 2018-11-04 13:50:59 Test Item Value Reference Range Interpretation Comme nts POC creatinine (test code = 1.2 mg/dl 0.5-0.9 H Meter ID: [id number]: [id number]) Jennifer [facility] Lab Interpretation (test code = Abnormal 25021-1) [place] MethodistEstimated [id number] 13:50:59 Test Item Value Reference Range Interpretation Comments Estimated GFR (test 48 mL/min/1.73 m2 Pola nicole Units code = 91044-6) Interpretati onG1 >=90 Mari l or highG2 60-89 Mildly decrease dG3a 45-59 Mil dly to moderately decr qryctI7m 30-44 Moderately to s everely decreasedG4 15-29 Severe ly decreasedG5 <15 Kidney kade lureThe eGFR was calcul ated using the [facility] Kidney Disease Epidemiology Collaboration ( CKD-EPI) equation. Interpretation is based on recommendati ons of the [facility]-Kidn ey Disease Outcome s Quality Initiat jose a (NKF-KDOQI) pub lished in 2013. Lab Interpretation Abnormal (test code = 95191-1) [place] MethodistXR Cervical Spine Complete w flex/[id number] 09:12:49Hm Interface, Radiology Results - 11/04/2018 9:15 AM CDTEXAMINATION: XR CERVICAL SPINE COMPLETE W FLEX EXTCLINICAL HISTORY: M54.12 Radiculopathy cervical region, radiculopathyCOMPARISON: 09/02/2018.IMPRESSION:7 views of the cervical spine including dynamic lateral radiograph's are interpreted.Again noted is ACDF at C3-4 with endplate screws. No hardware failure or loosening is seen.Moderate disc degenerative changes are noted at C6-7 are similar to comparison study. Mild cervical spondylosis is otherwise seen.There is slight grade 1 anterolisthesis of C7 relative to T1 that does not change on dynamic imaging.[id number] MethodistPOCT-GLUCOSE [id number] 11:57:00 Test Item Value Reference Range Interpretation Comments POC-GLUCOSE METER 105 mg/dL 70-110 TESTED AT [facility] 6720 (SupportLocal) (test code = [facility] Carlos Eduardo [facility] 1538) [id number] POCT-GLUCOSE [id number] 06:07:00 Test Item Value Reference Range Interpretation Comments POC-GLUCOSE METER 103 mg/dL 70-110 TESTED AT [facility] 6720 (SupportLocal) (test code = [facility] 1538) [id number] POCT-GLUCOSE [id number] 05:42:00 Test Item Value Reference Range Interpretation Comments POC-GLUCOSE METER 94 mg/dL 70-110 TESTED AT [facility] 6720 (BEAKER) (test code = [place] [address] 1538) [id number] 05:38:00 Test Item Value Reference Range Interpretation Comments PHOSPHORUS (BEAKER) (test code = 3.0 mg/dL 2.3-4.7 604) [id number] 05:38:00 Test Item Value Reference Range Interpretation Comments MAGNESIUM (BEAKER) (test code = 2.2 mg/dL 1.6-2.6 627) BASIC METABOLIC [id number] 05:38:00 Test Item Value Reference Range Interpretation Comments SODIUM (BEAKER) 135 meq/L 136-145 L (test code = 381) POTASSIUM (BEAKER) 3.7 meq/L 3.5-5.1 (test code = 379) CHLORIDE (BEAKER) 99 meq/L 98-107 (test code = 382) CO2 (BEAKER) (test 27 meq/L 22-29 code = 355) BLOOD UREA NITROGEN 14 mg/dL 7-21 (BEAKER) (test code = 354) CREATININE (BEAKER) 0.88 mg/dL 0.57-1.25 (test code = 358) GLUCOSE RANDOM 113 mg/dL 70-105 H (BEAKER) (test code = 652) CALCIUM (BEAKER) 9.0 mg/dL 8.4-10.2 (test code = 697) EGFR (BEAKER) (test 65 mL/min/1.73 ESTIMA DANG GFR IS code = 1092) sq m NOT ACCURATE CREATININE CLEARANCE IN PREDICTING GLOMERULAR FILTRATION RATE . ESTIMATED GFR I S NOT APPLICABLE FOR DIALYSIS PATIEN TS. CBC (HEMOGRAM ONLY)2018-10-22 04:50:00 Test Item Value Reference Range Interpretation Comments WHITE BLOOD CELL COUNT (BEAKER) 10.5 K/ L 3.5-10.5 (test code = 775) RED BLOOD CELL COUNT (BEAKER) 4.59 M/ L 3.93-5.22 (test code = 761) HEMOGLOBIN (BEAKER) (test code = 14.5 GM/DL 11.2-15.7 410) HEMATOCRIT (BEAKER) (test code = 42.5 % 34.1-44.9 411) MEAN CORPUSCULAR VOLUME (BEAKER) 92.6 fL 79.4-94.8 (test code = 753) MEAN CORPUSCULAR HEMOGLOBIN 31.6 pg 25.6-32.2 (BEAKER) (test code = 751) MEAN CORPUSCULAR HEMOGLOBIN CONC 34.1 GM/DL 32.2-35.5 (BEAKER) (test code = 752) RED CELL DISTRIBUTION WIDTH 13.4 % 11.7-14.4 (BEAKER) (test code = 412) PLATELET COUNT ([facility]) (test 266 K/CU MM 150-450 code = 756) MEAN PLATELET VOLUME (AKER) 10.2 fL 9.4-12.3 (test code = 754) NUCLEATED RED BLOOD CELLS 0 /100 WBC 0-0 ([facility]) (test code = 413) POCT-GLUCOSE [id number] 18:42:00 Test Item Value Reference Range Interpretation Comments POC-GLUCOSE METER 142 mg/dL 70-110 H TESTED AT [place] [address] ([facility]) (test code = [facility] 1538) [id number] POCT-GLUCOSE [id number] 17:02:00 Test Item Value Reference Range Interpretation Comments POC-GLUCOSE METER 132 mg/dL 70-110 H TESTED AT [place] [address] ([facility]) (test code = [facility] 1538) [address] POCT-GLUCOSE [id number] 11:30:00 Test Item Value Reference Range Interpretation Comments POC-GLUCOSE METER 125 mg/dL 70-110 H TESTED AT [place] [address] ([facility]) (test code = [facility] 1538) [address] RAPID DRUG SCREEN, [id number] 10:29:00 Test Item Value Reference Range Interpretation Comments BARBITURATE URINE (BEAKER) (test Negative Negative code = 725) BENZODIAZEPINE SCREEN URINE (BEAKER) Negative Negative (test code = 726) COCAINE (METAB.) SCREEN (BEAKER) Negative Negative (test code = 1164) METHADONE SCREEN (BEAKER) (test code Negative Negative = 1436) OPIATE SCREEN URINE (BEAKER) (test Positive Negative A code = 734) CANNABINOID SCREEN URINE (BEAKER) Negative Negative (test code = 727) AMPH/METHAMPH SCREEN (BEAKER) (test Negative Negative code = 1438) PHENCYCLIDINE SCREEN URINE (BEAKER) Negative Negative (test code = 608) DRUG CUTOFF CONC.Cocaine 300 ng/mL Cannabinoid 50 ng/mLBenzodiazepine 200 ng/mLBarbiturate 200 ng/mLPhencyclidine 25 ng/mLOpiate 300 ng/mLMethadone 300 ng/mLAmphetamine/ 1000 ng/mL MethamphetamineThis assay provides an unconfirmed qualitative test result for the clinical management of patients in emergency situations. Chain of custody not maintained. Some ryos-qzn-cwbwdzg medications, as well as adulterants, may cause inaccurate results. Clinical correlation should be applied. A more comprehensivedrug screen or confirmation of a detected drug may be performed upon request.CT, BRAIN, WITHOUT CONTRAST 2018-10-21 07:32:00FINAL REPORT CT, BRAIN, WITHOUT CONTRAST CLINICAL INDICATION: Cerebral hemorrhage suspected COMPARISON: 10/20/2018 TECHNIQUE: Noncontrast axial CT imaging of the brain and skull. DOSE REDUCTION: Dose modulation, iterative reconstruction, and/or weight-based adjustment [...] examination is recommended for further characterization. Signed: Corwin Valdes MDReport Verified Date/Time: 10/21/2018 07:32:00 Reading Location: [address] Neuro Reading Room [id number] 04:00:00 Test Item Value Reference Range Interpretation Comments PHOSPHORUS (BEAKER) (test code = 3.3 mg/dL 2.3-4.7 604) Once on admission and Daily AM afterwardsOnce on admission and Daily AM afterwardsOnce on admission and Daily AM [id number] 04:00:00 Test Item Value Reference Range Interpretation Comments MAGNESIUM (BEAKER) (test code = 2.3 mg/dL 1.6-2.6 627) Once on admission and Daily AM afterwardsOnce on admission and Daily AM afterwardsOnce on admission and Daily AM afterwardsBASIC METABOLIC PANEL 2018-10-21 04:00:00 Test Item Value Reference Range Interpretation Comments SODIUM (BEAKER) 136 meq/L 136-145 (test code = 381) POTASSIUM (BEAKER) 4.0 meq/L 3.5-5.1 (test code = 379) CHLORIDE (BEAKER) 101 meq/L 98-107 (test code = 382) CO2 (BEAKER) (test 29 meq/L 22-29 code = 355) BLOOD UREA NITROGEN 19 mg/dL 7-21 (BEAKER) (test code = 354) CREATININE (BEAKER) 0.89 mg/dL 0.57-1.25 (test code = 358) GLUCOSE RANDOM 123 mg/dL 70-105 H (BEAKER) (test code = 652) CALCIUM (BEAKER) 9.4 mg/dL 8.4-10.2 (test code = 697) EGFR (BEAKER) (test 64 mL/min/1.73 ESTIMA DANG GFR IS code = 1092) sq m NOT ACCURATE CREATININE CLEARANCE IN PREDICTING GLOMERULAR FILTRATION RATE . ESTIMATED GFR I S NOT APPLICABLE FOR DIALYSIS PATIEN TS. Once on admission and Daily AM afterwardsOnce on admission and Daily AM afterwardsOnce on admission and Daily AM afterwardsPOCT-GLUCOSE [id number] 01:18:00 Test Item Value Reference Range Interpretation Comments POC-GLUCOSE METER 147 mg/dL 70-110 H TESTED AT [facility] 6720 (BEAKER) (test code = STEPHANIE Thibodeaux [place] 1538) [id number] POCT-GLUCOSE [id number] 20:09:00 Test Item Value Reference Range Interpretation Comments POC-GLUCOSE METER 132 mg/dL 70-110 H TESTED AT [facility] 6720 (BEAKER) (test code = STEPHANIE Thibodeaux [place] 1538) [id number] 18:23:00 Test Item Value Reference Range Interpretation Comments POTASSIUM (BEAKER) (test code = 3.9 meq/L 3.5-5.1 379) CT, CTANGIO [id number] 17:30:00Reason for exam:->Intracranial hemorrhageWhat is the patient's [...] skull is intact. No intracranial aneurysm, focal stenosis, or proximal branch vessel occlusion. [...] comparison.2.No underlying aneurysm or vascular malformation. Signed: Rachele Vieira Verified Date/Time: 10/20/2018 17:30:34 05:30 PMPOCT-GLUCOSE METER 2018-10-20 12:09:00 Test Item Value Reference Range Interpretation Comments POC-GLUCOSE METER 120 mg/dL 70-110 H TESTED AT [facility] 6720 ([facility]) (test code = STEPHANIE Thibodeaux [facility] 1538) [id number] 09:25:00 Test Item Value Reference Range Interpretation Comments PARTIAL THROMBOPLASTIN TIME 31.0 seconds 22.5-36.0 ([facility]) (test code = 760) PROTHROMBIN TIME/[id number] 09:24:00 Test Item Value Reference Range Interpretation Comments PROTIME ([facility]) (test code = 14.8 seconds 11.9-14.2 H 759) INR (BEAKER) (test code = 370) 1.2 <=5.9 Effective 07/03/2018: PT Reference Range ChangeNew: 11.9-14.2 Previous: 11.7- 14.7RECOMMENDED COUMADIN/WARFARIN INR THERAPY RANGESSTANDARD DOSE: 2.0-3.0 Includes: PROPHYLAXIS for venous thrombosis, systemic embolization; TREATMENT for venous thrombosis and/or pulmonary embolus.HIGH RISK: Target INR is2.5-3.5 for patients wiht mechanical heart valves.HEPATIC FUNCTION [id number] 08:51:00 Test Item Value Reference Range Interpretation Comments TOTAL PROTEIN (BEAKER) (test code = 6.9 gm/dL 6.0-8.3 770) ALBUMIN (BEAKER) (test code = 1145) 3.8 g/dL 3.5-5.0 BILIRUBIN TOTAL (BEAKER) (test code 1.0 mg/dL 0.2-1.2 = 377) BILIRUBIN DIRECT (BEAKER) (test 0.4 mg/dL 0.1-0.5 code = 706) ALKALINE PHOSPHATASE (BEAKER) (test 70 U/L 40-150 code = 346) AST (SGOT) (BEAKER) (test code = 22 U/L 5-34 353) ALT (SGPT) (BEAKER) (test code = 19 U/L 6-55 347) BASIC METABOLIC [id number] 05:25:00 Test Item Value Reference Range Interpretation Comments SODIUM (BEAKER) 133 meq/L 136-145 L (test code = 381) POTASSIUM (BEAKER) 3.5 meq/L 3.5-5.1 (test code = 379) CHLORIDE (BEAKER) 98 meq/L 98-107 (test code = 382) CO2 (BEAKER) (test 27 meq/L 22-29 code = 355) BLOOD UREA NITROGEN 18 mg/dL 7-21 (BEAKER) (test code = 354) CREATININE (BEAKER) 1.00 mg/dL 0.57-1.25 (test code = 358) GLUCOSE RANDOM 152 mg/dL 70-105 H (BEAKER) (test code = 652) CALCIUM (BEAKER) 9.4 mg/dL 8.4-10.2 (test code = 697) EGFR (BEAKER) (test 56 mL/min/1.73 ESTIMA DANG GFR IS code = 1092) sq m NOT ACCURATE CREATININE CLEARANCE IN PREDICTING GLOMERULAR FILTRATION RATE . ESTIMATED GFR I S NOT APPLICABLE FOR DIALYSIS PATIEN TS. CBC W/PLT COUNT & AUTO [id number] 04:52:00 Test Item Value Reference Range Interpretation Comments WHITE BLOOD CELL COUNT (BEAKER) 11.9 K/ L 3.5-10.5 H (test code = 775) RED BLOOD CELL COUNT (BEAKER) 4.51 M/ L 3.93-5.22 (test code = 761) HEMOGLOBIN (BEAKER) (test code = 14.1 GM/DL 11.2-15.7 410) HEMATOCRIT (BEAKER) (test code = 41.4 % 34.1-44.9 411) MEAN CORPUSCULAR VOLUME (BEAKER) 91.8 fL 79.4-94.8 (test code = 753) MEAN CORPUSCULAR HEMOGLOBIN 31.3 pg 25.6-32.2 (BEAKER) (test code = 751) MEAN CORPUSCULAR HEMOGLOBIN CONC 34.1 GM/DL 32.2-35.5 (BEAKER) (test code = 752) RED CELL DISTRIBUTION WIDTH 13.4 % 11.7-14.4 (BEAKER) (test code = 412) PLATELET COUNT (BEAKER) (test 281 K/CU MM 150-450 code = 756) MEAN PLATELET VOLUME (BEAKER) 10.1 fL 9.4-12.3 (test code = 754) NUCLEATED RED BLOOD CELLS 0 /100 WBC 0-0 (BEAKER) (test code = 413) NEUTROPHILS RELATIVE PERCENT 78 % (BEAKER) (test code = 429) LYMPHOCYTES RELATIVE PERCENT 13 % (BEAKER) (test code = 430) MONOCYTES RELATIVE PERCENT 8 % (BEAKER) (test code = 431) EOSINOPHILS RELATIVE PERCENT 0 % (BEAKER) (test code = 432) BASOPHILS RELATIVE PERCENT 0 % (BEAKER) (test code = 437) NEUTROPHILS ABSOLUTE COUNT 9.36 K/ L 1.56-6.13 H (BEAKER) (test code = 670) LYMPHOCYTES ABSOLUTE COUNT 1.55 K/ L 1.18-3.74 (BEAKER) (test code = 414) MONOCYTES ABSOLUTE COUNT (BEAKER) 0.91 K/ L 0.24-0.36 H (test code = 415) EOSINOPHILS ABSOLUTE COUNT 0.01 K/ L 0.04-0.36 L (ALLAN) (test code = 416) BASOPHILS ABSOLUTE COUNT (ALLAN) 0.04 K/ L 0.01-0.08 (test code = 417) IMMATURE GRANULOCYTES-RELATIVE 1 % 0-1 PERCENT (ALLAN) (test code = 2801) POCT-GLUCOSE [id number] 02:25:00 Test Item Value Reference Range Interpretation Comments POC-GLUCOSE METER 113 mg/dL 70-110 H TESTED AT [facility] 6720 (ALLAN) (test code = STEPHANIE [place] 1538) [id number] XR Cervical Spine 2 Or 3 [id number] 08:45:47Hm Interface, Radiology Results Incoming - 09/02/2018 8:48 AM CDTEXAMINATION: XR CERVICAL SPINE 2 OR 3 VWCLINICAL HISTORY: M43.22 Fusion of spine cervical region, C-spine fusion follow upCOMPARISON: NoneIMPRESSION:3 views of the cervical spine are interpreted.ACDF is noted at C3-4 with endplate screws. No loosening is seen.Moderate disc degenerative changes are noted at C6-7 and to a lesser extent at C4-5 and C5-6. Mild disc degenerative changes are noted at C2-3.Alignment is preserved.[id number] Methodist[facility] pathology [id number] 11:56:23 Test Item Value Reference Range Interpretation Comments Case number (test code = [id number]) Surgical pathology See link below for report (test code = PDF Lab Report [id number]) Result status (test code This is Final Report = [id number]) for [id number] [place] [facility] 1 [id number] 10:41:38Hm Interface, Radiology Results Incoming - 07/31/2018 10:44 AM CDTEXAMINATION: XR CERVICAL SPINE 1 VWCLINICAL HISTORY: Cervical region neck pain and radiculopathyCOMPARISON: Intraoperative x-ray from earlier todayFINDINGS: There is anterior fusion from C3-C4. There is good alignment. There are degenerative changes in the cervical spine. There is a tube within the oropharynx extending downwards. There are multiple radiographic wires and leads.IMPRESSION:Lateral portable crosstable intraoperative radiograph of the cervical spine for localization during cervical spine surgery.[facility]-[id number] MethodistBasic metabolic [id number] 14:18:33 Test Item Value Reference Range Interpretation Comments Sodium (test code = 2951-2) 143 135- 148 mEq/L Potassium (test code = 2823-3) 3.8 3.5- 5.0 mEq/L Chloride (test code = 2075-0) 100 98- 112 mEq/L CO2 (test code = 8-9) 28 24- 31 mEq/L Anion gap (test code = 41550-2) 15@ANIO 7- 15 mEq/L BUN (test code = 3094-0) 13 mg/dL 8-23 Creatinine (test code = 2160-0) 1.01 mg/dL 0.5-0.9 H Glucose (test code = 2345-7) 112 mg/dL 65-99 H Calcium (test code = 46434-8) 9.5 mg/dL 8.8-10.2 Lab Interpretation (test code = Abnormal 71100-7) [facility] with [facility] and [id number] 13:55:46 Test Item Value Reference Range Interpretation Comments WBC (test code = 6.74 4.50- 11.00 k/uL 62592-3) RBC (test code = 4.56 m/uL 4.2-5.5 50135-9) HGB (test code = 718-7) 14.4 g/dL 12-16 HCT (test code = 4544-3) 43.3 % 37-47 MCV (test code = 787-2) 95.0 fL 82-100 MCH (test code = 785-6) 31.6 pg 27-34 MCHC (test code = 786-4) 33.3 g/dL 31-37 RDW - SD (test code = 44.9 fL 37-55 24725-1) MPV (test code = 11.0 fL 8.8-13.2 38565-4) Platelet count (test 244 150- 400 k/uL code = 59704-0) Nucleated RBC (test code 0.00 /100 WBC = 86956-8) Neutrophils (test code = 60.5 % 39-69 26802-5) Lymphocytes (test code = 27.4 % 25-45 35534-1) Monocytes (test code = 8.8 % 0-10 76565-4) Eosinophils (test code = 2.2 % 0-5 68321-1) Basophils (test code = 0.7 % 0-1 38173-4) Immature granulocytes 0.4 % 0-1 "Immat ure (test code = 15114-3) granul ocytes" (promyelocytes, myelocytes, metamyelocytes) [facility] Cervical Spine Wo [id number] 10:24:00Hm Interface, Radiology Results - 07/04/2018 10:27 AM CDTEXAMINATION: MRI CERVICAL SPINE WOCONTRASTCLINICAL HISTORY: M50.00 Cervical disc disorder with myelopathy unspecified cervical region, M54.2 Cervicalgia, HNP (herniated nucleus pulposus) with myelopathy cervicalCOMPARISON: MRI C-spine 03/21/2018.TECHNIQUE: Multiplanar multisequence noncontrast enhanced examination was performed of the cervical spine.FINDINGS:No significant interval change appearing since the prior MRI from 03/21/2018.The alignment of cervical spine is within normal limits.No subluxation. STIR hyperintense vertebralhemangiomas are noted within the T1 and T2 vertebral bodies. No suspicious osseous lesion. Vertebralbody heights are preserved. The cervicomedullary junction is normal in appearance. No spinal cord signal abnormality.No prevertebral edema identified. Right thyroid nodule measuring up to 1.9 x 1.4 cm noted within the right tracheoesophageal groove, image 28 of series 6. No cervical lymphadenopathy identified.Axial images through the disc spaces demonstrate the following:C1-C2: No significant spinal c anal stenosis.C2-C3: No significant posterior disc disease, spinal canal, subarticular zone, or neural foraminal stenosis.C3-C4: Disc desiccation with mild broad-based disc protrusion which indents theventral thecal sac and results in mild to moderate central canal stenosis, including contact of the ventral spinal cord, image 14 of series 5. Neural foramina are patent bilaterally.C4-C5: Mild to moderate left neural foraminal stenosis secondary to degenerative uncovertebral hypertrophy, image 17 of series 5. No significant posterior disc disease, spinal canal, subarticular zone, or right neural foraminal stenosis.C5- C6: Disc desiccation with moderate intervertebral disc height loss and circumferential disc bulge which indents the ventral thecal sac and results in moderate bilateral neural frontalstenosis when combined with facet arthrosis. Central canal is mildly narrowed.C6-C7: Moderate to marked left neural foraminal stenosis secondary to degenerative uncovertebral and facet arthrosis. No sig nificant posterior disc disease, spinal canal, subarticular zone, or right neural foraminal stenosis.C7-T1: No significant posterior disc disease, spinal canal, subarticular zone, or neural foraminal stenosis.IMPRESSION:1. Mild to moderate central canal stenosis at C3-C4 secondary to broad-based disc protrusion, including contact of the ventral spinal cord. No abnormal cord signal.2. Right trachealesophageal groove thyroid nodule measuring up to 1.9 cm, which merits dedicated thyroid ultrasound and FNA/biopsy based on size criteria.[facility]-[id number] Yarsanism
--- NOTE | 2019-07-02 11:08 | RAD REPORT ---
EXAM DESCRIPTION: US - Guided FNA Non Breast - 07/02/2019 10:39 am CLINICAL HISTORY: E04.1 Dominant right thyroid nodule COMPARISON: Hepatobiliary System W/ Ph dated 06/27/2016 FINDINGS: Preoperative diagnosis: Dominant right thyroid nodule. Post operative diagnosis: Same. Conscious Sedation: None Fluoroscopy time: None Contrast used: None Estimated blood loss: Minimal Specimens:25 gauge FNA specimens x5 The right neck was prepped and draped in the usual sterile fashion. 1% lidocaine was infiltrated into the subcutaneous tissues for local anesthesia. Real time ultrasound scanning of the right thyroid de monstrated dominant 2.5 cm predominately echogenic nodule. Under ultrasound guidance, using 25 gauge FNA needles, 5 specimens were obtained of this lesion and sent to pathology for evaluation. There wer e no complications. IMPRESSION: Successful ultrasound-guided right thyroid FNA procedure as detailed.
== END ==
LOC: FNA 09:25
PROVIDERS: ATTEND Family Medicine
PROC: 0G9H3ZX Drainage of Right Thyroid Gland Lobe, Percutaneous Approach, Diagnostic (ICD-10-PCS; principal; 2019-07-02)
PROC: BG44ZZZ Ultrasonography of Thyroid Gland (ICD-10-PCS; 2019-07-02)
DX: E04.1 Nontoxic single thyroid nodule (principal)
CPT/HCPCS: 88305

== ENCOUNTER 2020-11-05 05:53 | Day surgery (SDC) | payer BC ==
[2020-11-02 09:19] LABS: Absolute Lymphocytes (CBC) 1.8 K/uL (0.7-4.9); Basophils % 0.9 % (0-1.3); Hematocrit 42.1 % (36.0-45.0); Lymphocytes % 24.5 % (15.3-44.8); MPV 8.3 fL (7.6-11.3); RBC Red Blood Cell Count 4.54 M/uL (3.86-4.86)
[2020-11-02 09:32] LABS: Protime INR 1.09
[2020-11-02 09:34] LABS: Potassium 4.5 mmol/L (3.5-5.1)
--- NOTE | 2020-11-02 09:38 | RAD REPORT ---
EXAM DESCRIPTION: RAD - Chest Pa And Lat (2 Views) - 11/02/2020 9:28 am CLINICAL HISTORY: PreOp, patient pending shoulder surgery COMPARISON: Portable chest June 2014 TECHNIQUE: Frontal and lateral views of the chest were obtained. FINDINGS: The lungs are clear. Interstitial pattern not clearly different from the comparison exami nation. Heart size is normal and central vasculature is within normal limits. No pleural effusion or pneumothorax seen. No acute bony finding noted. No aortic abnormality. IMPRESSION: No acute cardiopulmonary process. No significant change from comparison.
[2020-11-05] MEDS ORDERED: Ringers Lactate 1,000 ML IV ONE ×2 (06:46→07:25)
[2020-11-05] MEDS ORDERED: LIDOCAINE 1% MPF 5 ML VIAL ONE ×2 (06:53→07:22)
[2020-11-05] MEDS ORDERED: NS 0.9% VIAL 10 ML ONE (06:53)
[2020-11-05] MEDS ORDERED: FENTANYL CITR 100 MCG/2 ML ONE (06:54)
[2020-11-05] MEDS ORDERED: dexAMETHasone 10 MG/ML VIAL ONE (06:54)
[2020-11-05] MEDS ORDERED: MIDAZOLAM HCL 2 MG/2 ML INJ ONE (06:55)
[2020-11-05] MEDS ORDERED: ROPLVACAINE HCL 40 ML ONE (06:55)
[2020-11-05] MEDS ORDERED: EPINEPHRINE/PF 1 MG/ML AMP ONE (07:25)
[2020-11-05] MEDS ORDERED: ROCURONIUM 50 MG/5 ML VIAL IV ONE (07:36)
[2020-11-05] MEDS ORDERED: LIDOCAINE 2% MPF 5 ML VIAL ONE (07:36)
[2020-11-05] MEDS ORDERED: propofoL 200 MG/20 ML VIAL IV ONE (07:36)
[2020-11-05] MEDS ORDERED: ONDANSETRON 4 MG/2 ML VIAL ONE ×2 (07:37→11:22)
[2020-11-05] MEDS ORDERED: CLINDAMYCIN INJ 600 MG in NA CHLORIDE 0.9% 50 ML IV ONE (08:00)
[2020-11-05] MEDS ORDERED: EPHEDRINE SULF 50 MG/ML VIAL ONE (08:15)
--- NOTE | 2020-11-05 09:00 | P.BOP ---
Preoperative diagnosis: right rotator cuff tear, shoulder impingement syndrome, biceps tendinitis Postoperative diagnosis: same Primary procedure: right shoulder arthroscopic rotator cuff debridement with biceps tenotomy Secondary procedure: right shoulder arthroscopic subacromial decompression Pediatric Geneticist: NONE,NONE Estimated blood loss: 5 cc Specimen: none Findings: see dictation Anesthesia: General Complications: None Implants: none Fluids & blood products: per anesthesia record Transferred to: Recovery Room Condition: Good
[2020-11-05] MEDS ORDERED: KETOROLAC 30 MG/ML INJ ONE (09:06)
--- NOTE | 2020-11-05 09:46 | RAD REPORT ---
EXAM DESCRIPTION: RAD - Shoulder 1 View - 11/05/2020 9:39 am CLINICAL HISTORY: s/p RC debridement, SAD, bicep tenotomy COMPARISON: No comparisons FINDINGS: Single view submitted. Postsurgical changes to the right shoulder with some gas within the shoulder joint. Spurring at the right AC joint. No acute fracture. IMPRESSION: No acute osseous abnormality involving the right shoulder.
[2020-11-05 10:48] VITALS: TEMP 97.2
[2020-11-05] MEDS ORDERED: HYDROCODONE/APAP 5/325 MG TAB ONE (10:48)
[2020-11-05 11:14] VITALS: BP 110/53; O2SAT 93
--- NOTE | 2020-11-05 17:33 | OP ---
Date of Procedure: 11/05/2020 Surgeon: Bethel Farley MD Preoperative Diagnoses: 1.Right shoulder rotator cuff tear. 2.Right shoulder bicipital tenosynovitis. Postoperative Diagnoses: 1.Right shoulder rotator cuff tear. 2.Right shoulder bicipital tenosynovitis. Procedures Performed: 1.Right shoulder arthroscopic rotator cuff debridement and biceps tenotomy. 2.Right shoulder arthroscopic subacromial decompression. Anesthesia: General endotracheal. Fluids: Per Anesthesia record. Estimated Blood Loss: 5 cc. Complications: None. Implants: None. Indication For Procedure: Manju is a 65-year-old female, who presented to clinic with physical exam findings and MRI findings consistent with a right shoulder partial-thickness rotator cuff tear and i mpingement syndrome. The patient failed conservative treatment measures including physical therapy a nd corticosteroid injections. The patient continued to have pain with overhead activity. I discusse d with the patient at length risks and benefits associated with operative and nonoperative treatment. She expressed understanding and elected to proceed with operative treatment. Description Of Procedure: After informed consent was obtained, the patient was identified in the pre operative holding area. The right upper extremity was marked. The patient was then brought back to the PACU where she underwent a right upper extremity interscalene block performed by Anesthesia. She was then brought back to the operating room, transferred to the operating table in supine fashion, p laced under general endotracheal anesthesia. She was then placed in the beach chair position with he r extremities well padded. The right upper extremity was then prepped and draped in usual sterile fa shion. A time-out was initiated. The correct patient and procedure confirmed and identified. The p atient did receive her preoperative prophylactic antibiotics. A spinal needle was introduced in the glenohumeral joint via the posterior portal position. 30 cc of normal saline was then injected into the shoulder joint and then the capsule. An 11 blade was then used to create a posterior portal. Th e arthroscope was brought in via the posterior portal position. Diagnostic arthroscopy was performed . The patient does have a type 1 superior labral tear with significant fraying of the biceps tendon anchor. Anterior portal cannula was placed under direct visualization. A biceps tenotomy was then p erformed given the significant fraying at the biceps tendon anchor as well as SLAP tear. Using menis dannielle biter, the biceps tenotomy was completed. The stump was then debrided using arthroscopic shaver. The labral tear was debrided using an arthroscopic shaver to smooth borders. There was no signific ant instability noted to the labrum. Anterior-posterior labrum were found to be stable to probe. Th ere was some fraying of the anterior labrum, which was debrided using arthroscopic shaver. The subsc apularis was found to be intact and stable to probe. There was mild chondromalacia noted of the adelaide ral head. No loose bodies found in the axillary pouch. Anterior aspect of the rotator cuff was note d to have a partial-thickness tear of the articular surface of the supraspinatus. This did appear to be approximately 10% of tendon thickness. It was then debrided to healthy appearing tissue using an arthroscopic shaver. The arthroscope was then brought in the subacromial space and subacromial burs ectomy was performed after creating a lateral portal using an arthroscopic shaver. Using obturator a nd probe, the rotator cuff, supraspinatus, and infraspinatus were then probed to ensure no full-thick ness tear was noted. This was confirmed. The patient was noted to have some fraying of the posterio r supraspinatus and anterior infraspinatus consistent with a partial-thickness bursal-sided tear, whi ch was measured to be less than 40% of the tendon. Healthy tissue was then debrided using the arthro scopic shaver. There was no significant retracted or full-thickness tear noted of the rotator cuff o n the bursal side. There was some fraying of the coracoacromial ligament and a subacromial decompres jasmine was performed using a radiofrequency ablator and arthroscopic bur. After this was completed, th e arthroscopic instruments were then removed without complication. Wound was then irrigated thorough ly with normal saline. Skin was approximated using 3-0 Monocryl. Sterile dressings were applied. T he patient was awakened and transferred to the PACU in stable condition in a shoulder immobilizer. Postoperative Plan: The patient will begin physical therapy in 2 weeks postop per post decompression protocol. ZORAIDA/JEMMA Voice ID: [id number] Report ID: [id number]
== END 2020-11-05 11:55 | disposition home or self-care (01) ==
LOC: OR 05:53
PROVIDERS: ATTEND Orthopaedic Surgery Sports Medicine
PROC: 0RNJ4ZZ Release Right Shoulder Joint, Percutaneous Endoscopic Approach (ICD-10-PCS; 2020-11-05)
PROC: 0RBJ4ZZ Excision of Right Shoulder Joint, Percutaneous Endoscopic Approach (ICD-10-PCS; principal; 2020-11-05 07:30)
DX: M75.111 Incomplete rotator cuff tear or rupture of right shoulder, not specified as traumatic (principal); M75.51 Bursitis of right shoulder; M75.21 Bicipital tendinitis, right shoulder; M25.511 Pain in right shoulder; Z20.822 Contact with and (suspected) exposure to COVID-19
CPT/HCPCS: 29822; 29826; 85025; 80048; 36415; 85610; 85730; 71046; 73020; U0002; J2704; J0171; J2250; J3010; J1100; J2795; J7120 ×2; J2405 ×2